=== PATIENT | male | born 1965 | race Caucasian/White ===

== ENCOUNTER 2021-01-18 11:53 | Outpatient (REF) | payer BC, SELFPAY ==
[2021-01-18 13:29] LABS: MANUAL DIFF FLAG NO
[2021-01-18 13:32] LABS: Basophils Absolute Auto 0.1 X10*3/uL (0.0-0.2); Basophils Percent Auto 1.4 % (0-2); Eosinophils Absolute Auto 0.1 X10*3/uL (0.0-0.4); Eosinophils Percent Auto 2.1 % (0-4); Hematocrit 44.2 % (42-52); Hemoglobin 15.1 g/dl (14.0-18.0); Imm Gran Abs Auto 0.01 X10*3/uL (0.00-0.03); Imm Gran Pct Auto 0.2 % (0.0-0.4); Lymphocytes Absolute Auto 1.3 X10*3/uL (1.2-4.9); Lymphocytes Percent Auto 23.3 % (20-40); Mean Corpuscular HGB Conc 34.2 g/dl (31.0-36.0); Mean Corpuscular Volume 90.8 fL (80-98); Mean Platelet Volume 11.2 fL (9.4-12.4); Monocytes Absolute Auto 0.6 X10*3/uL (0.1-1.2); Monocytes Percent Auto 11.1 % (2-11); Neutrophils Absolute Auto 3.5 X10*3/uL (2.0-8.3); Neutrophils Percent Auto 61.9 % (45-73); Platelet Count 244 X10*3/uL (160-400); Red Blood Count 4.87 X10*6/uL (4.60-5.80); White Blood Count 5.6 X10*3/uL (4.8-10.8)
[2021-01-18 13:55] LABS: Alanine Aminotransferase 16 U/L (0-40); Albumin Level 4.5 g/dL (3.5-5.0); Alkaline Phosphatase 52 U/L (39-117); Anion Gap 10 (12-20); Aspartate Amino Transferase 18 U/L (5-37); Bilirubin Total 2.9 mg/dL (0.0-1.0); Blood Urea Nitrogen 16 mg/dL (9-16); Calcium 9.3 mg/dL (8.4-10.2); Carbon Dioxide 27 mmol/L (22-29); Chloride 103 mmol/L (96-108); Estimated Glomerular Filt Rate > 60; Glucose Fasting 89 mg/dL (60-99); Potassium 4.2 mmol/L (3.3-5.1); Sodium 136 mmol/L (135-145); Total Protein 7.1 g/dL (6.5-8.0)
[2021-01-18 13:57] LABS: Glucose Urine UA NEG (NEG); Leukocyte Esterase Urine NEG (NEG); Nitrite Urine NEG (NEG); PH 6.5 (5.0-8.0); Specific Gravity - Urine 1.015 (1.005-1.025); Urine Blood NEG (NEG); Urine Ketones NEG (NEG); Urine Protein NEG (NEG-TRACE)
[2021-01-18 14:01] LABS: Appearance Urine CLEAR; Color Urine YELLOW
[2021-01-18 14:15] LABS: TSH reflex Free T4 0.98 uIU/mL (0.32-4.0)
== END 2021-01-18 11:54 | disposition home or self-care (01) ==
LOC: HO.WFDLDS 11:53
PROVIDERS: Visit Provider Family Medicine
DX: Z00.00 Encounter for general adult medical examination without abnormal findings (principal)
CPT/HCPCS: 36415; 80053; 81003; 84443; 85025

== ENCOUNTER → 2021-02-01 09:13 | Outpatient (BNVA) | payer BC, SELFPAY | PROVIDERS: PCP Family Medicine; Referring Provider Family Medicine; Visit Provider Physician Assistant ==

== ENCOUNTER 2021-02-06 10:39 | Outpatient (REF) | payer BC, SELFPAY ==
[2021-02-06 14:52] LABS: Bilirubin Direct 0.4 mg/dL (0.0-0.5); Gamma Glutamyl Transpeptidase 19 U/L (11-51); Lipase 65 U/L (8-78)
[2021-02-07 04:50] LABS: HBS Num1 1.51 mIU/mL (0-7.99); HBc Num1 0.07 S/CO (0.00-0.79); Hepatitis B Core Antibody Nonreactive (Nonreactive); ~Hepatitis B Surface Antibody NONREACTIVE (Nonreactive); ~Hepatitis C Antibody Nonreactive (Nonreactive)
[2021-02-07 04:56] LABS: Hepatitis B Surface Antigen Negative (Negative)
[2021-02-08 08:21] LABS: Hepatitis A Antibody IgM 0.32 Index (0-0.79); ~Hepatitis A Antibody IgM Nonreactive (Nonreactive)
[2021-02-09 12:06] LABS: Endomysial IgA Antibody Negative (Negative)
[2021-02-09 13:06] LABS: Anti Nuclear Antibody Screen NEGATIVE (NEGATIVE)
[2021-02-09 20:32] LABS: Transglutaminase IgA <1.0 U/mL
== END 2021-02-06 10:40 | disposition home or self-care (01) ==
LOC: HO.WFDLDS 10:39
PROVIDERS: PCP Family Medicine; Visit Provider Physician Assistant
DX: R17 Unspecified jaundice (principal); R74.01 Elevation of levels of liver transaminase levels; R19.7 Diarrhea, unspecified; R79.89 Other specified abnormal findings of blood chemistry
CPT/HCPCS: 36415; 82248; 82977; 83516; 83690; 86038; 86039; 86255; 86256; 86704; 86706; 86709; 86803; 87340

== ENCOUNTER 2021-02-08 10:44 | Outpatient (REF) | payer BC, SELFPAY ==
[2021-02-08 14:35] LABS: Leukocytes Stool Qualitative NEGATIVE (NEGATIVE)
== END 2021-02-08 10:45 | disposition home or self-care (01) ==
LOC: HO.WFDLNP 10:44
PROVIDERS: Absent Provider Physician Assistant; Visit Provider Family Medicine
DX: R19.7 Diarrhea, unspecified (principal)
CPT/HCPCS: 87045; 87046; 89055

== ENCOUNTER 2021-03-06 09:23 | Outpatient (REF) | payer BC, SELFPAY ==
--- NOTE | ~2021-03-06 | US_ITS ---
EXAMINATION: US ABDOMEN COMPLETE CLINICAL INFORMATION: Unspecified jaundice. COMPARISON: None TECHNIQUE: Real-time imaging of the abdominal viscera. FINDINGS: PANCREAS: The visualized pancreas is normal in size and contour and echogenicity. There is no pancreatic ductal distention. The distal body and tail are obscured by bowel gas and not completely imaged. ABDOMINAL AORTA: The proximal, mid, and distal segments are normal in caliber. INFERIOR VENA CAVA: Visualized portions are normal. LIVER: The liver is normal in size and smooth in contour. Hepatic parenchymal echogenicity is homogeneous and within normal. There is no focal hepatic parenchymal lesion and no intrahepatic ductal dilatation. Doppler shows portal flow towards the liver. GALLBLADDER: The gallbladder is possibly partly contracted (although technologist notes patient fasting). The lumen is anechoic. There is no stone or sludge or calculi. Gallbladder wall is borderline thickened measuring 0.35 cm. No subserosal edema or pericholecystic fluid. Negative sonographic Zhao's sign. COMMON BILE DUCT: Normal in caliber measuring 0.34 cm in diameter. No ductal calculus. RIGHT KIDNEY: Right kidney measures 9.6 cm in length. There is normal parenchymal thickness and echogenicity and no hydronephrosis. LEFT KIDNEY: Left kidney measures 10.4 cm in length. There is normal parenchymal thickness and echogenicity and no hydronephrosis. SPLEEN: Normal. The spleen measures 10.7 cm in maximum dimension. FREE FLUID: None. US/US abdomen complete IMPRESSION: 1. Liver normal in size and homogeneous. No intrahepatic ductal dilatation. 2. Question partly contracted gallbladder. No visible calculus or sludge.
== END 2021-03-06 09:24 | disposition home or self-care (01) ==
LOC: HO.US 09:23
PROVIDERS: PCP Family Medicine; Visit Provider Physician Assistant
DX: R17 Unspecified jaundice (principal)
CPT/HCPCS: 76700

== ENCOUNTER 2021-03-14 08:53 | Outpatient (REF) | payer BC, SELFPAY ==
--- NOTE | ~2021-03-14 | FL_ITS ---
EXAMINATION: FL BARIUM SWALLOW CLINICAL INFORMATION: Gastroesophageal reflux disease without esophagitis COMPARISON: None TECHNIQUE: Barium swallow examination is performed using fluoroscopic evaluation in addition to multiple fluoroscopic spot views. The patient is imaged both upright and prone and using both thick and thin sulfate along with effervescent granules. Barium tablet was also administered. Fluoroscopy time: 1.1 minutes DAP: 3 Gycm2 Images: 42 FINDINGS: The swallowing mechanism is normal. No aspiration or penetration is seen. There is significant gastroesophageal reflux. There is mild mucosal irregularity of the distal thoracic esophagus suggestive of mild esophagitis. There is a tiny sliding hiatal hernia. No mass or stricture is seen. Barium tablet passed freely into the stomach. FL/FL barium swallow IMPRESSION: Gastroesophageal reflux. Mild mucosal irregularity of the distal thoracic esophagus suggestive of mild esophagitis.
== END 2021-03-14 08:54 | disposition home or self-care (01) ==
LOC: HO.XRAY 08:53
PROVIDERS: PCP Family Medicine; Visit Provider Physician Assistant
DX: K21.9 Gastro-esophageal reflux disease without esophagitis (principal); R10.9 Unspecified abdominal pain
CPT/HCPCS: 74220

== ENCOUNTER 2021-07-03 08:54 | Day surgery (SDC) | payer BC, SELFPAY ==
--- NOTE | 2021-06-30 12:46 | P.CONAN_ITS ---
Documented by User: Sandy Weathers NP 06/30/21 12:47 HPI - Anesthesia Eval Consult details Narrative: 56yo M for Upper Endoscopy and Colonoscopy [facility] Active Problems Active Problems: All Active Problems (Updated 06/27/21 @ 11:05 by Ofelia Robertson RN) Stomach pain (Acute) GERD (gastroesophageal reflux disease) (Acute) Elevated bilirubin (Acute) Past Medical History Medical History (Updated 06/27/21 @ 11:05 by Ofelia Robertson RN) GERD (gastroesophageal reflux disease) Surgical History Surgical History Hx of colonoscopy Social History Social History Household Members Other:: single no kids Alcohol intake: current Alcohol intake frequency: does not drink Patient Tobacco Use Status: Never used Tobacco Second Hand Smoke Exposure: No Use of substances other than those prescribed or required for medical reasons: No Are you DNR?: No Advance Directives: No Advance Directives Information Provided: Yes Advance Directives on File: No Current occupation: [employer] Allergies Allergy/AdvReac Type Severity Reaction Status Date / Time No Known Allergies Allergy Verified 06/27/21 11:05 Exam Exam Date and Time: June 30, 2021 1246 Pertinent Lab Results Pertinent Lab Results: Laboratory Tests 01/18/21 01/18/21 12:05 12:05 WBC 5.6 Hgb 15.1 Hct 44.2 Plt Count 244 Sodium 136 Potassium 4.2 Chloride 103 Carbon Dioxide 27 BUN 16 Creatinine 0.81 Assessment and Plan Assessment Anesthesia Assessment: Chart Reviewed Documented by User: Evangelina Sanchez MD 07/03/21 10:35 [facility] Past Medical History Medical History (Updated 06/27/21 @ 11:05 by Ofelia Robertson RN) GERD (gastroesophageal reflux disease) Family History Family history of problems with anesthesia: No Surgical History Surgical History Hx of colonoscopy History of Problems with Anesthesia: No Social History Social History Household Members Other:: single no kids Alcohol intake: current Alcohol intake frequency: does not drink Patient Tobacco Use Status: Never used Tobacco Second Hand Smoke Exposure: No Use of substances other than those prescribed or required for medical reasons: No Are you DNR?: No Advance Directives: No Advance Directives Information Provided: Yes Advance Directives on File: No Current occupation: [employer] Allergies Allergy/AdvReac Type Severity Reaction Status Date / Time No Known Allergies Allergy Verified 06/27/21 11:05 Exam Airway Mallampati Class: II TM Dist: >3cm Neck ROM: Full Heart: rrr Lungs: cta Assessment and Plan Assessment Anesthesia Assessment: Anesthesia Plan Discussed and Chart Reviewed Final Anesthetic Review Family History of Problems with Anesthesia: No History of Problems with Anesthesia: No NPO: Yes ASA Class: II Final Preanesthetic Review: No Changes in Pt Med Stat, Meds/Allgs Chart Reviewed, Consent Obtained/Reviewed and Anes Risks/Benef Reviewed Patient Risk: Intermediate Procedure Risk: Intermediate Anesthetic Plan Anesthetic Plan: MAC: Disposition: Standard PACU
[2021-07-03 09:45] VITALS: BP 116/73; PULSE 64; RESP 16; TEMP 36.5; O2SAT 98; BMI 20.9
[2021-07-03] MEDS: Lactated Ringers 1,000 ML 100 ML IVCONT (09:52)
--- NOTE | 2021-07-03 10:21 | MHC.SHP ---
Pre-Procedural Eval Section A Date of Service: 07/03/21 The patient is an INPATIENT: No The History & Physical has been completed within 30 days and I have reviewed it.: No Section B Chief Complaint: Abdominal Pain,GERD Details of Present Illness: Colon cancer screening, GERD, abdominal pain, change in bowel habits Relevant Family History (Specify if Yes): No Relevant Social History: None Present Medications: see Short Stay Collaborative assessment Medical History: Significant History (GERD, abdominal pain) History of Previous Operations: Relevant previous surgery/procedure and date(s) (Hx of colonoscopy) Allergies: Allergies Allergy/AdvReac Type Severity Reaction Status Date / Time No Known Allergies Allergy Verified 06/27/21 11:05 Review of Systems Sugical H&P ROS: Negative: Constitution, Cardiovascular and Respiratory and Yes, Specify: Gastrointestinal (abdominal pain) Exam Surgical H&P Exam: Normal: Heart, Normal: Lungs, Normal: Extremities and Normal: Abdomen Plan Diagnosis/Plan: Unchanged I have reviewed the history and physical and performed a pertinent physical examination on my patient. No changes have occurred unless specified.
--- NOTE | 2021-07-03 10:23 | PM.OP ---
Brief Operative Note Date of Service: 07/03/21 Pre-op diagnosis: Colon cancer screening, abdominal pain, GERD, change in bowel habits Post-op diagnosis: other (Hiatal hernia, GERD, gastritis, gastric polyps, hemorrhoids) Procedure: FLEXIBLE TRANSORAL UPPER GASTROINTESTINAL ENDOSCOPY WITH BIOPSIES AND COLONOSCOPY TILL CECUM WITH BIOPSIES UPPER ENDOSCOPY Consent: Indications for the procedure and potential complications of bleeding, perforation, reaction to medications and missed diagnosis were discussed with the patient and informed consent was obtained. Instrument: Olympus GIF H 190 mid size upper endoscope Monitoring: Vital signs and clinical assessment, continuous EKG monitoring, Pulse oximetry, Carbon Dioxide monitoring and blood pressure monitoring were done throughout the procedure. Procedure: The patient was placed in the left lateral decubitis position and pre-procedure medications were administered and a bite block was placed. The endoscope was inserted into the mouth and advanced under direct vision to the third part of duodenum. A careful inspection was made as the upper endoscope was withdrawn including a retroflexed examination of the proximal stomach; Findings and interventions are described below. Findings: Larynx: Normal Esophagus: GE junction at 38 cms, small hiatal hernia 38 to 40 cms. Focal esophagitis at GE junction with early non-obstructing stricture versus Scatzki's ring - biopsies were obtained. Stomach: A few 4-5 mm benign appearing polyps in the gastric body - one was biopsied. Moderate gastric erythema. Biopsies were obtained. Grade 2 flap valve on retroflexed examination of the cardia. Duodenum: Normal bulb and descending duodenum - biopsied to check ofr celiac sprue Intervention: Biopsies as noted above COLONOSCOPY PROCEDURE NOTE Consent: Indications for the procedure and potential complications of bleeding, perforation, reaction to medications and missed diagnosis were discussed with the patient and informed consent was obtained. Instrument: Olympus PCF H 190 L variable stiffness pediatric colonoscope Monitoring: Vital signs and clinical assessment, intermittent blood pressure monitoring, continuous EKG monitoring, Pulse oximetry and Carbon Dioxide monitoring were done throughout the procedure. Colon withdrawl time was 24 minutes. Procedure: The patient was placed in the left lateral decubitis position and pre-procedure medications were administered. After a digital rectal examination of the ano-rectum, the video colonoscope was inserted into the rectum and advanced through the colon to the cecum. The colonoscope was slowly withdrawn in a retrograde panoramic fashion and the colon mucosa was carefully examined including a retroflexed view of the rectum. Findings and interventions are described below. Procedure Difficulty: Colon was long and tortuous and there was some loop formation. No maneuvers required Findings: Terminal Ileum: Distal 5 cms was examined and appeared normal - random biopsies were obtained. Cecum: Normal Ascending Colon: Normal Transverse Colon: Normal Descending Colon: Normal Sigmoid Colon: Normal Rectum: Normal Ano-rectum: Moderate internal hemorrhoids Colon preparation: Good after copious irrigation and fair in some areas of the colon (cecum and rectum) due undigested vegetable matter Impression and Post Procedure Diagnosis: Endoscopy Findings: ESOPHAGUS: GE junction at 38 cms, small hiatal hernia 38 to 40 cms. Focal esophagitis at GE junction with early non-obstructing stricture versus Scatzki's ring - biopsies were obtained. STOMACH: A few 4-5 mm benign appearing polyps in the gastric body - one was biopsied. Moderate gastric erythema. Biopsies were obtained. DUODENUM: Normal bulb and descending duodenum - biopsied to check ofr celiac sprue Colonoscopy Findings: No polyps were detected. Random biopsies were obtained from the TI and colon Moderate hemorrhoids on retroflexed exam. Plan: Await pathology results Patient has an appointment on 07/17/21 in the GI Clinic with KIERAN Hopper. Repeat Colonoscopy interval based on path results - in 10 years if biopsies are normal (needs two day prep or extra laxatives and an adult colonoscope for future colonoscopies) Above findings were reviewed with the patient and GERD, Hiatal Hernia and Gastric Polyps handouts were given in the discharge area Surgeon: Tyron Fernández MD Anesthesia: MAC (Dr Barreto) Was an Fireproof Door Assembler used for this Procedure?: Yes Fireproof Door Assembler: Aurea Fitzgerald Estimated blood loss (mL): 0 Pathology: other (A. small bowel bxs, R/O celiac B. gastric antrum bxs, R/O H. pylori C. gastric polyp D. G-E junction, R/O esophagitis E. T-I bxs, R/O IBD F. random colon bxs, R/O microscopic ) Condition: stable Disposition: PACU
--- NOTE | 2021-07-03 10:34 | W.PM.OPN ---
Operative Note Operative Note Date of Service: 07/03/21 Narrative: Pre-op diagnosis: Colon cancer screening, abdominal pain, GERD, change in bowel habits Post-op diagnosis:?other (Hiatal hernia, GERD, gastritis, gastric polyps, hemorrhoids) Procedure: FLEXIBLE TRANSORAL UPPER GASTROINTESTINAL ENDOSCOPY WITH BIOPSIES AND COLONOSCOPY TILL CECUM WITH BIOPSIES UPPER ENDOSCOPY Consent:?Indications for the procedure and potential complications of bleeding, perforation, reaction to medications and missed diagnosis were discussed with the patient and informed consent was obtained. Instrument:?Olympus GIF H 190 mid size upper endoscope Monitoring: Vital signs and clinical assessment, continuous EKG monitoring, Pulse oximetry, Carbon Dioxide monitoring and blood pressure monitoring were done throughout the procedure. Procedure:?The patient was placed in the left lateral decubitis position and pre-procedure medications were administered and a bite block was placed. The endoscope was inserted into the mouth and advanced under direct vision to the third part of duodenum. A careful inspection was made as the upper endoscope was withdrawn including a retroflexed examination of the proximal stomach; Findings and interventions are described below. Findings: Larynx:? Normal Esophagus:?GE junction at 38 cms, small hiatal hernia 38 to 40 cms.? Focal esophagitis at GE junction with early non-obstructing stricture versus Scatzki's ring - biopsies were obtained. Stomach:?A few 4-5 mm benign appearing polyps in the gastric body - one was biopsied. Moderate gastric erythema. Biopsies were obtained. Grade 2 flap valve on retroflexed examination of the cardia. Duodenum:?Normal bulb and descending duodenum - biopsied to check ofr celiac sprue ? Intervention:?Biopsies as noted above COLONOSCOPY PROCEDURE NOTE Consent:?Indications for the procedure and potential complications of bleeding, perforation, reaction to medications and missed diagnosis were discussed with the patient and informed consent was obtained. Instrument:?Olympus PCF H 190 L variable stiffness pediatric colonoscope Monitoring:?Vital signs and clinical assessment, intermittent blood pressure monitoring, continuous EKG monitoring, Pulse oximetry and Carbon Dioxide monitoring were done throughout the procedure. Colon withdrawl time was 24 minutes. Procedure:?The patient was placed in the left lateral decubitis position and pre-procedure medications were administered. After a digital rectal examination of the ano-rectum, the video colonoscope was inserted into the rectum and advanced through the colon to the cecum. The colonoscope was slowly withdrawn in a retrograde panoramic fashion and the colon mucosa was carefully examined including a retroflexed view of the rectum. Findings and interventions are described below. Procedure Difficulty:??Colon was long and tortuous and there was some loop formation. No maneuvers required Findings: Terminal Ileum: Distal 5 cms was examined and appeared normal - random biopsies were obtained. Cecum:? Normal Ascending Colon:??Normal Transverse Colon:??Normal Descending Colon:? Normal Sigmoid Colon: Normal Rectum:??Normal Ano-rectum:??Moderate internal hemorrhoids Colon preparation:? Good after copious irrigation and fair in some areas of the colon (cecum and rectum) due undigested vegetable matter Impression and Post Procedure Diagnosis: Endoscopy Findings: ESOPHAGUS: GE junction at 38 cms, small hiatal hernia 38 to 40 cms.? Focal esophagitis at GE junction with early non-obstructing stricture versus Scatzki's ring - biopsies were obtained. STOMACH: A few 4-5 mm benign appearing polyps in the gastric body - one was biopsied. Moderate gastric erythema. Biopsies were obtained. DUODENUM: Normal bulb and descending duodenum - biopsied to check ofr celiac sprue?? Colonoscopy Findings: No polyps were detected. Random biopsies were obtained from the TI and colon Moderate hemorrhoids on retroflexed exam. Plan: Await pathology results Patient has an appointment on 07/17/21 in the GI Clinic with KIERAN Hopper. Repeat Colonoscopy interval based on path results - in 10 years if biopsies are normal (needs two day prep or extra laxatives and an adult colonoscope for future colonoscopies) Above findings were reviewed with the patient and GERD, Hiatal Hernia and Gastric Polyps handouts were given in the discharge area Surgeon: Tyron Fernández MD Anesthesia:?MAC (Dr Barreto) Was an Shovel Logger used for this Procedure?:?Yes Shovel Logger:?Aurea Fitzgerald Estimated blood loss (mL):?0 Pathology:?other (A. small bowel bxs, R/O celiac? B. gastric antrum bxs, R/O H. pylori? C. gastric polyp? D. G-E junction, R/O esophagitis? E. T-I bxs, R/O IBD? F. random colon bxs, R/O microscopic ) Condition:?stable Disposition:?PACU
[2021-07-03 11:28] VITALS: BP 113/70; PULSE 92; RESP 16; TEMP 36.3; O2SAT 97
[2021-07-03 11:43] VITALS: BP 103/70; PULSE 90; RESP 16; O2SAT 100
[2021-07-03 11:58] VITALS: BP 117/75; PULSE 81; RESP 16; TEMP 36.3; O2SAT 100
== END 2021-07-03 12:39 | disposition home or self-care (01) ==
PROVIDERS: PCP Family Medicine; Visit Provider Internal Medicine Gastroenterology
PROC: (CPT 45380; principal; 2021-07-03 10:20)
DX: Z12.11 Encounter for screening for malignant neoplasm of colon (principal); K64.8 Other hemorrhoids; R19.7 Diarrhea, unspecified; K21.9 Gastro-esophageal reflux disease without esophagitis; K29.50 Unspecified chronic gastritis without bleeding; K31.7 Polyp of stomach and duodenum; K44.9 Diaphragmatic hernia without obstruction or gangrene; Z79.899 Other long term (current) drug therapy
CPT/HCPCS: 45380; 43239; 88305; 88342

== ENCOUNTER → 2021-07-17 14:56 | Outpatient (BNVA) | payer BC, SELFPAY | PROVIDERS: PCP Family Medicine; Referring Provider Family Medicine; Visit Provider Physician Assistant ==

== ENCOUNTER 2021-08-29 10:51 | Outpatient (REF) | payer BC, SELFPAY ==
[2021-08-29 13:15] LABS: MANUAL DIFF FLAG NO
[2021-08-29 13:21] LABS: Basophils Absolute Auto 0.1 X10*3/uL (0.0-0.2); Basophils Percent Auto 1.6 % (0-2); Eosinophils Absolute Auto 0.1 X10*3/uL (0.0-0.4); Eosinophils Percent Auto 1.3 % (0-4); Hematocrit 42.6 % (42.0-52.0); Hemoglobin 14.3 g/dl (14.0-18.0); Imm Gran Abs Auto 0.01 X10*3/uL (0.00-0.03); Imm Gran Pct Auto 0.3 % (0.0-0.4); Lymphocytes Absolute Auto 1.1 X10*3/uL (1.2-4.9); Lymphocytes Percent Auto 30.6 % (20-40); Mean Corpuscular HGB Conc 33.6 g/dl (31.0-36.0); Mean Corpuscular Volume 92.2 fL (80.0-98.0); Mean Platelet Volume 11.8 fL (9.4-12.4); Monocytes Absolute Auto 0.5 X10*3/uL (0.1-1.2); Monocytes Percent Auto 13.7 % (2-11); Neutrophils Percent Auto 52.5 % (45-73); Platelet Count 194 X10*3/uL (160-400); Red Blood Count 4.62 X10*6/uL (4.60-5.80); Red Cell Distribution Width 12.5 % (11.0-16.0); White Blood Count 3.7 X10*3/uL (4.8-10.8)
[2021-08-29 13:48] LABS: Alanine Aminotransferase 19 U/L (0-40); Albumin Level 4.4 g/dL (3.5-5.0); Alkaline Phosphatase 57 U/L (39-117); Anion Gap 13 (12-20); Aspartate Amino Transferase 22 U/L (5-37); Bilirubin Direct 0.8 mg/dL (0.0-0.5); Bilirubin Total 2.9 mg/dL (0.0-1.0); Blood Urea Nitrogen 19 mg/dL (9-16); C Reactive Protein 0.02 mg/dL (< or = 0.50); Calcium 9.6 mg/dL (8.4-10.2); Carbon Dioxide 27 mmol/L (22-29); Chloride 103 mmol/L (96-108); Estimated Glomerular Filt Rate > 60; Glucose Random 59 mg/dL (60-115); Sodium 139 mmol/L (135-145); Total Protein 6.9 g/dL (6.5-8.0)
[2021-08-29 14:13] LABS: Erythrocyte Sedimentation Rate 4 MM/HR (0-15)
== END 2021-08-29 10:52 | disposition home or self-care (01) ==
LOC: HO.WFDLDS 10:51
PROVIDERS: Visit Provider Physician Assistant
DX: R19.7 Diarrhea, unspecified (principal); K21.9 Gastro-esophageal reflux disease without esophagitis; R17 Unspecified jaundice; K20.90 Esophagitis, unspecified without bleeding; K50.00 Crohn's disease of small intestine without complications
CPT/HCPCS: 36415; 80053; 81479; 82248; 82397; 83520; 85025; 85652; 86140; 88346; 88350

== ENCOUNTER 2021-09-04 11:17 | Outpatient (REF) | payer BC, SELFPAY ==
[2021-09-09 21:47] LABS: Calprotectin, Fecal 49 mcg/g
== END 2021-09-04 11:18 | disposition home or self-care (01) ==
LOC: HO.WFDLNP 11:17
PROVIDERS: Visit Provider Physician Assistant
DX: K50.00 Crohn's disease of small intestine without complications (principal); R19.7 Diarrhea, unspecified
CPT/HCPCS: 83993

== ENCOUNTER → 2021-10-03 12:29 | Outpatient (BNVA) | payer BC, SELFPAY | PROVIDERS: PCP Family Medicine; Visit Provider Physician Assistant | DX: K21.9 Gastro-esophageal reflux disease without esophagitis (principal) ==

== ENCOUNTER 2021-11-21 10:04 | Outpatient (REF) | payer BC, SELFPAY ==
[2021-11-21 11:32] LABS: MANUAL DIFF FLAG NO
[2021-11-21 11:49] LABS: Basophils Absolute Auto 0.1 X10*3/uL (0.0-0.2); Basophils Percent Auto 1.3 % (0-2); Eosinophils Absolute Auto 0.1 X10*3/uL (0.0-0.4); Eosinophils Percent Auto 2.3 % (0-4); Hematocrit 44.8 % (42.0-52.0); Imm Gran Abs Auto 0.02 X10*3/uL (0.00-0.03); Imm Gran Pct Auto 0.3 % (0.0-0.4); Lymphocytes Absolute Auto 1.6 X10*3/uL (1.2-4.9); Lymphocytes Percent Auto 26.8 % (20-40); Mean Corpuscular HGB Conc 33.5 g/dl (31.0-36.0); Mean Corpuscular Hemoglobin 30.7 pg (27.0-33.0); Mean Corpuscular Volume 91.6 fL (80.0-98.0); Mean Platelet Volume 11.2 fL (9.4-12.4); Monocytes Absolute Auto 0.6 X10*3/uL (0.1-1.2); Monocytes Percent Auto 10.6 % (2-11); Neutrophils Absolute Auto 3.6 x10*3/uL (2.0-8.3); Neutrophils Percent Auto 58.7 % (45-73); Platelet Count 208 X10*3/uL (160-400); Red Blood Count 4.89 X10*6/uL (4.60-5.80); Red Cell Distribution Width 12.4 % (11.0-16.0); White Blood Count 6.1 X10*3/uL (4.8-10.8)
[2021-11-21 13:03] LABS: Alanine Aminotransferase 29 U/L (0-40); Albumin Level 4.4 g/dL (3.5-5.0); Alkaline Phosphatase 60 U/L (39-117); Anion Gap 12 (12-20); Aspartate Amino Transferase 22 U/L (5-37); Bilirubin Total 2.1 mg/dL (0.0-1.0); Blood Urea Nitrogen 12 mg/dL (9-16); Carbon Dioxide 29 mmol/L (22-29); Chloride 103 mmol/L (96-108); Estimated Glomerular Filt Rate > 60; Glucose Random 94 mg/dL (60-115); Sodium 140 mmol/L (135-145); Total Protein 6.8 g/dL (6.5-8.0)
== END 2021-11-21 10:05 | disposition home or self-care (01) ==
LOC: HO.WFDLDS 10:04
PROVIDERS: Visit Provider Physician Assistant
DX: R10.9 Unspecified abdominal pain (principal); R17 Unspecified jaundice
CPT/HCPCS: 36415; 80053; 85025

== ENCOUNTER 2021-12-20 10:33 | Outpatient (REF) | payer BC, SELFPAY ==
--- NOTE | ~2021-12-20 | MR_ITS ---
EXAMINATION: MR ANGIOGRAPHY BRAIN WITHOUT CONTRAST CLINICAL INFORMATION: Cerebral aneurysm. Family history of brain aneurysm. COMPARISON: None available. TECHNIQUE: 3D [id number] MR angiography was performed through the brain without the use of intravenous gadolinium and axial source images were reviewed along with rotating MIPs. FINDINGS: Normal flow-related signal within the anterior circulation without evidence of focal stenosis or occlusion of the intradural internal carotid, middle cerebral, or anterior cerebral arteries. Normal flow-related signal within the posterior circulation without evidence of focal stenosis or occlusion of the intradural vertebral, basilar, superior cerebellar, or posterior cerebral arteries. No demonstrated intradural aneurysms. No additional significant abnormalities on limited evaluation of the intracranial structures. MR/MR angio head wo con IMPRESSION: Normal MRA of the head.
== END 2021-12-20 10:34 | disposition home or self-care (01) ==
LOC: HO.MRI 10:33
PROVIDERS: Visit Provider Family Medicine
DX: I67.1 Cerebral aneurysm, nonruptured (principal)
CPT/HCPCS: 70544

== ENCOUNTER 2022-01-30 09:26 | Outpatient (REF) | payer BC, SELFPAY ==
[2022-01-30 10:56] LABS: Cholesterol 215 mg/dL; HDL Cholesterol 62 mg/dL; LDL Cholesterol Calculated 133 mg/dl; Triglycerides 102 mg/dL
[2022-01-30 11:21] LABS: TSH reflex Free T4 1.66 uIU/mL (0.32-4.0)
[2022-02-06 07:32] LABS: Testosterone, Total 734 ng/dL (250-1100)
== END 2022-01-30 09:27 | disposition home or self-care (01) ==
LOC: HO.WFDLDS 09:26
PROVIDERS: Visit Provider Family Medicine
DX: Z00.00 Encounter for general adult medical examination without abnormal findings (principal); Z12.5 Encounter for screening for malignant neoplasm of prostate; R68.89 Other general symptoms and signs
CPT/HCPCS: 36415; 80061; 84153; 84402; 84403; 84443

== ENCOUNTER 2023-02-11 08:51 | Outpatient (AMB) | payer BC, SELFPAY ==
--- NOTE | 2023-02-11 08:59 | A.OFFPC_ITS ---
Vital Signs 02/11/23 09:01 Height 5 ft 6 in Weight 119 lb 4 oz BMI 19.2 BP 98/64 Blood Pressure Location Rt brachial Position Sitting Pulse 60 Pulse Source Pulse Oximeter Pulse Oximetry (%) 100 Oxygen Delivery Method Room Air Intake Visit Reasons: CPE with f/u labs and health maintena Intake Note: Patient is here for his physical today. Allergies No Known Allergies Allergy (Verified 02/11/23 09:03) Tobacco use date assessed: 02/11/23 Dental Screening Dental Screen Date: 02/11/23 Did you have a dental visit in the last 12 months?: Yes Did you have a dental problem in the last 6 months where you did not have access to dental care?: No Was dental information given to patient?: Patient has dentist HPI CPE with f/u labs and health maintena HPI Details 57 y/o male presents for a CPE with f/u labs and health maintenance. No recent labs to review. Pt reports wrist pain. 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 He denies any numbness/tingling. [facility] Medical History GERD (gastroesophageal reflux disease) Surgical History H/O bone graft Hx of colonoscopy Social History Household Members Other:: single no kids Housing: House Alcohol intake: current Alcohol intake frequency: does not drink Patient Tobacco Use Status: Never used Tobacco e-Cigarette/Vaping Use: Never Used Second Hand Smoke Exposure: No service: No Current occupational status: employed Current occupation: [employer] Current occupational exposures/hazards: No Cognitive needs: No Hearing needs: No Vision needs: No Questionnaire PHQ-9 Over the last 2 weeks, how often have you been bothered by any of the following problems? 1. Little interest or pleasure in doing things: not at all 2. Feeling down, depressed, or hopeless: not at all 3. Trouble falling or staying asleep, or sleeping too much: not at all 4. Feeling tired or having little energy: not at all 5. Poor appetite or overeating: not at all 6. Feeling bad about yourself - or that you are a failure or have let yourself or your family down: not at all 7. Trouble concentrating on things, such as reading the newspaper or watching television: not at all 8. Moving or speaking so slowly that other people could have noticed. Or the opposite - being so fidgety or restless that you have been moving around a lot more than usual: not at all 9. Thoughts that you would be better off or of hurting yourself in some way: not at all Total score: 0 Source: Developed by Drs. Aldo Kelsey, Gisela Burnham, Jesus Joy and colleagues, with an educational miesha from [employer]. Thrive Questionnaire I am a: Patient What is your living situation today?: I have a steady place to live Within the past 12 months, did the food you bought not last and you didn't have the money to get more?: Never true Within the past 12 months, did you worry whether your food would run out before you got money to buy more?: Never true Do you have trouble paying for medicines?: No Do you have trouble getting transportation to medical appointments?: No Do you have trouble paying your heating and electricity bill?: No Do you have trouble taking care of your child, family member or friend?: No Do you have trouble with day-to-day activities such as bathing, preparing meals, shopping, managing finances, etc.?: No Are you currently unemployed and looking for a job?: No Are you interested in more education?: Yes AUDIT C Alcohol Use Questionnaire (AUDIT-C) 1. How often do you have a drink containing alcohol?: Never 3. How often do you have six or more drinks on one occasion?: Never Total Score: 0 RON-7 AMB Questionnaire RON-7 Date RON - 7 assessed: 02/11/23 Feeling nervous, anxious, or on edge: 0 = Not at all Not being able to stop or control worryin = Not at all Worrying too much about different things: 0 = Not at all Trouble relaxin = Not at all Being so restless that it is hard to sit still: 0 = Not at all Becoming easily annoyed or irritable: 0 = Not at all Feeling afraid as if something awful might happen: 0 = Not at all Total RON-7 score (0-4 normal; 5-9 mild; 10-14 moderate; 15-21 severe): 0 Source: Developed by Drs. Aldo Kelsey, Gisela Burnham, Jesus Joy and colleagues, with an educational miesha from [employer]. Review of Systems Const Denies chills, Denies fatigue, Denies fever(s), Denies headache(s) and Denies weakness Eyes Denies change in vision ENT Denies dizziness, Denies headache(s), Denies hearing loss, Denies nasal congestion, Denies sinus pain, Denies sinus pressure and Denies sore throat Card Denies chest pain, Denies lightheadedness, Denies dyspnea and Denies other (palpitations) Resp Denies cough, Denies dyspnea and Denies wheezing GI Denies abdominal pain, Denies melena, Denies hematochezia, Denies change in bowel habits, Denies dyspepsia and Denies nausea Denies hematuria and Denies dysuria Musc Denies abnormal gait, Denies myalgias, Denies arthralgias, Denies numbness and Denies tingling Skin/Breast Denies rash, Denies unusual bruising and Denies wounds Neuro Denies abnormal gait, Denies dizziness, Denies headache(s), Denies memory loss, Denies numbness, Denies Sensory deficit (Neuro), Denies tingling and Denies we akness Psych Denies anxiety, Denies depression and Denies memory loss Endo Denies cold intolerance, Denies fatigue, Denies heat intolerance, Denies po lydipsia and Denies polyuria German/Lymph Denies easy bleeding and Denies easy bruising Aller/Immun Denies wheezing Physical exam (Primary Care) Vital Signs: Last Vital Signs Pulse 60 02/11/23 09:01 BP 98/64 02/11/23 09:01 Pulse Ox 100 02/11/23 09:01 Oxygen Delivery Method Room Air 02/11/23 09:01 BMI result Body Mass Index 19.2 Tobacco/Smoking Status: Tobacco use Status Tobacco use date assessed 02/11/23 02/11/23 09:04 Patient Tobacco Use Status Never used Tobacco 02/11/23 08:59 e-Cigarette/Vaping Use Never Used 02/11/23 08:59 PHQ-9: PHQ-9 Score PHQ-9: Total score 0 02/11/23 09:11 Const General: no acute distress, well developed, alert and awake Nutritional Appearance: well nourished Orientation/consciousness: patient oriented x3 [facility] Head: Yes normocephalic and Yes atraumatic Ears: hearing grossly normal bilaterally and TM's normal bilaterally General nose exam: Normal external nose present and Normal nares present Mouth: Normal oral and palatal mucosa present and moist mucous membranes Teeth and gingiva: dentition normal Throat: Yes posterior oropharynx normal Eyes General: appearance normal, both eyes and all related structures Pupils: Equal, round and reactive pupils present and Pupil accommodation reflex normal EOM: EOMs intact bilaterally Neck Neck: Yes normal visual inspection, Yes no lymphadenopathy and Yes trachea midline Thyroid: Thyroid normal Carotids: no bruits Lymphatic: no lymphadenopathy noted Chest Chest palpation & inspection: normal inspection of the chest Resp Effort & Inspection: normal respiratory effort Auscultation: clear to auscultation bilaterally Cardio Rate: regular rate Rhythm: regular rhythm Heart sounds: S1 normal heart sound present, S2 normal heart sound present, no gallops, no murmurs and no rubs Bruits: no abdominal aortic bruits and no carotid bruits GI Palpation (GI): No Abdominal aortic bruit present, Soft to palpation, nontender, No hepatosplenomegaly present and No Rebound tenderness present Auscultation: normal bowel sounds General: Yes no CVA tenderness Back/Spine/Pelvis Back: no CVA tenderness Cervical Spine: cervical ROM normal and No Cervical spine tenderness Thoracic/Lumbar Spine: thoraco-lumbar ROM normal, No pain with thoraco-lumbar ROM, No thoracic spinal tenderness and No lumbar spinal tenderness Skin Lesions: no lesions Rashes: no rashes Trauma: no lacerations or abrasions Wounds: no wounds Nails: normal Neuro General: patient oriented x3 Cranial nerves: Yes Equal, round and reactive pupils present Cognition (Neuro): normal cognition Gait exam (Neuro): Normal gait present Motor exam (neuro): 5/5 motor strength present throughout Sensory Exam: No Sensory deficit (Neuro) Deep tendon reflexes (DTR's): Right patellar reflex intensity grade: 2+ and Left patellar reflex intensity grade: 2+ Extrem General: Yes normal to inspection and No edema Psych Appearance: grossly normal Affect: normal affect Attitude: cooperative Thought process: Normal thought process present Assessment and Plan Assessment & Plan (1) Adult general medical examination: Code(s): Z00.00 - Encounter for general adult medical examination without abnormal findings Plan: 57-year-old male presents for complete physical exam Encouraged healthy diet with active lifestyle and plenty of exercise (2) Wrist pain: Code(s): M25.539 - Pain in unspecified wrist Plan: Bilateral wrist pain with inflammation, left worse than right, after overuse cutting wood with a chain saw Likely some reactive arthritis and tendinitis. Check x-ray and labs Can use ibuprofen t.i.d. until symptoms inge Ice and elevation Once symptoms have abated, he can use wrist braces for more support or if he is unable to perform his tasks with these, he can use Saul wraps for support. Would also use ice after tasks. (3) Screening for colon cancer: Code(s): Z12.11 - Encounter for screening for malignant neoplasm of colon Plan: Had colonoscopy at [facility] last year. Follow-up recommended at 10 years (4) Screening for prostate cancer: Code(s): Z12.5 - Encounter for screening for malignant neoplasm of prostate Plan: Check PSA (5) Immunization counseling: Code(s): Z71.85 - Encounter for immunization safety counseling Plan: Ordered Orders: Orders Comprehensive [place]. Panel Fast Today Z00.00 - Encounter for general adult medical examination without abnormal findings Microalbumin, Random (w Creat) Today I10 - Essential (primary) hypertension TSH reflex Free T4 Today Z00.00 - Encounter for general adult medical examination without abnormal findings UA and rflx microscopic Today Z00.00 - Encounter for general adult medical examination without abnormal findings Uric Acid Today M25.539 - Pain in unspecified wrist Complete Blood Count Auto Diff Today M25.539 - Pain in unspecified wrist, Z00.00 - Encounter for general adult medical examination without abnormal findings XR wrist LT 2V Today M25.539 - Pain in unspecified wrist TDaP Immunization Today Z23 - Encounter for immunization Lipid Panel Today Z00.00 - Encounter for general adult medical examination without abnormal findings Prostate Specific Antigen Scr Today Z12.5 - Encounter for screening for malignant neoplasm of prostate XR wrist RT 2V Today M25.539 - Pain in unspecified wrist Medications: New Boostrix Tdap (diphth,pertus(acell),tetanus) 0.5 mL IM ONCE 0.5 mL 0RF NS Z23 - Encounter for immunization ibuprofen 800 mg PO Q8H 14 days PRN 42 tabs 0RF pain Coding Level of Care Code Est Pt Level 3 (15118) Est Pt Prev Care 40-64y(76318) Diagnoses Adult general medical examination Z00.00 Wrist pain M25.539 Screening for colon cancer Z12.11 Screening for prostate cancer Z12.5 Immunization counseling Z71.85
[2023-02-11 09:01] VITALS: BP 98/64; PULSE 60; O2SAT 100; BMI 19.2
== END 2023-02-11 10:14 | disposition home or self-care (01) ==
PROVIDERS: PCP Family Medicine; Visit Provider Family Medicine
DX: Z00.00 Encounter for general adult medical examination without abnormal findings (principal); M25.539 Pain in unspecified wrist; Z71.85 Encounter for immunization safety counseling; Z23 Encounter for immunization
CPT/HCPCS: 90471; 90715; 99396

== ENCOUNTER 2023-02-11 10:04 | Outpatient (REF) | payer BC, SELFPAY ==
[2023-02-11 11:51] LABS: Appearance Urine Clear; Color Urine Yellow; Glucose Urine UA Negative (Negative); Leukocyte Esterase Urine Negative (Negative); Nitrite Urine Negative (Negative); PH 7.5 (5.0-9.0); Urine Blood Negative (Negative); Urine Ketones Negative (Negative); Urine Protein Negative (Neg-Trace)
[2023-02-11 12:11] LABS: Creatinine Urine 79.27 mg/dL; Microalbumin Urine < 5.0 mg/L
[2023-02-11 12:49] LABS: Alanine Aminotransferase 20 U/L (0-40); Albumin Level 4.4 g/dL (3.5-5.0); Alkaline Phosphatase 60 U/L (39-117); Anion Gap 15 (12-20); Aspartate Amino Transferase 25 U/L (5-37); Bilirubin Total 2.9 mg/dL (0.0-1.0); Blood Urea Nitrogen 6 mg/dL (9-16); Calcium 9.6 mg/dL (8.4-10.2); Carbon Dioxide 22 mmol/L (22-29); Chloride 101 mmol/L (96-108); Cholesterol 194 mg/dL (<200); Estimated Glomerular Filt Rate > 60; Glucose Fasting 98 mg/dL (60-99); HDL Cholesterol 64 mg/dL (>40); LDL Cholesterol Calculated 111 mg/dL (<100); Potassium 4.2 mmol/L (3.3-5.1); Sodium 134 mmol/L (135-145); Total Protein 7.4 g/dL (6.5-8.0); Triglycerides 96 mg/dL (<150); Uric Acid 4.1 mg/dL (3.4-7.0)
[2023-02-11 13:18] LABS: Prostate Specific Antigen Scr 0.82 ng/mL (<0.05-4.0)
== END 2023-02-11 10:05 | disposition home or self-care (01) ==
LOC: HO.WFDLDS 10:04
PROVIDERS: Visit Provider Family Medicine
DX: Z00.00 Encounter for general adult medical examination without abnormal findings (principal); Z12.5 Encounter for screening for malignant neoplasm of prostate; I10 Essential (primary) hypertension; M25.539 Pain in unspecified wrist
CPT/HCPCS: 36415; 80053; 80061; 81003; 82043; 82570; 84153; 84443; 84550

== ENCOUNTER 2023-02-23 10:19 | Outpatient (REF) | payer BC, SELFPAY ==
--- NOTE | ~2023-02-23 | XR_ITS ---
EXAMINATION: XR WRIST, RIGHT CLINICAL INFORMATION: Pain. COMPARISON: None available. TECHNIQUE: PA, lateral, and oblique views of the right wrist. FINDINGS: The bones and soft tissues are normal. No fracture. Alignment is anatomic with normal joint spaces. There is a mild ulnar positive variance. No erosions or abnormal soft tissue calcifications. XR/XR wrist LT 2V IMPRESSION: Normal right wrist. EXAMINATION: XR WRIST, LEFT CLINICAL INFORMATION: Pain. COMPARISON: None available. TECHNIQUE: PA, lateral, and oblique views of the left wrist. FINDINGS: The bones and soft tissues are normal. No fracture. Alignment is anatomic with normal joint spaces. There is a mild ulnar positive variance. No erosions or abnormal soft tissue calcifications. IMPRESSION: Normal left wrist.
--- NOTE | ~2023-02-23 | XR_ITS ---
EXAMINATION: XR WRIST, RIGHT CLINICAL INFORMATION: Pain. COMPARISON: None available. TECHNIQUE: PA, lateral, and oblique views of the right wrist. FINDINGS: The bones and soft tissues are normal. No fracture. Alignment is anatomic with normal joint spaces. There is a mild ulnar positive variance. No erosions or abnormal soft tissue calcifications. XR/XR wrist RT 2V IMPRESSION: Normal right wrist. EXAMINATION: XR WRIST, LEFT CLINICAL INFORMATION: Pain. COMPARISON: None available. TECHNIQUE: PA, lateral, and oblique views of the left wrist. FINDINGS: The bones and soft tissues are normal. No fracture. Alignment is anatomic with normal joint spaces. There is a mild ulnar positive variance. No erosions or abnormal soft tissue calcifications. IMPRESSION: Normal left wrist.
== END 2023-02-23 10:20 | disposition home or self-care (01) ==
LOC: HO.XRAY 10:19
PROVIDERS: PCP Family Medicine; Visit Provider Family Medicine
DX: M25.532 Pain in left wrist (principal); M25.531 Pain in right wrist
CPT/HCPCS: 73100

== ENCOUNTER 2023-03-04 09:52 | Outpatient (AMB) | payer BC, SELFPAY ==
--- NOTE | 2023-03-04 09:46 | A.OFFPC_ITS ---
Intake Visit Reasons: f/u CPE-labs Intake Note: Today's visit is for follow up/lab review. Allergies No Known Allergies Allergy (Verified 03/04/23 09:47) Tobacco use date assessed: 03/04/23 HPI f/u CPE-labs HPI Details 58 y/o male presents to review CPE-labs via telemedicine. Labs were drawn 02/11/23. Reviewed labs with pt. Mildly low sodium at 134. Triglycerides 96. TC 194. LDL 111. HDL 64. HPI Comments History of Present Illness Details Documentation assistance for Darrick Hyman MD, was provided by Ezio Acharya,? Gang Mower Operator on 03/04/2023 10:21 AM EST. I, Dr. Hyman, have read, observed, and verified documentation. PFSH Medical History GERD (gastroesophageal reflux disease) Surgical History H/O bone graft Hx of colonoscopy Social History Household Members Other:: single no kids Housing: House Alcohol intake: current Alcohol intake frequency: does not drink Patient Tobacco Use Status: Never used Tobacco e-Cigarette/Vaping Use: Never Used Second Hand Smoke Exposure: No service: No Current occupational status: employed Current occupation: [employer] Current occupational exposures/hazards: No Cognitive needs: No Hearing needs: No Vision needs: No Questionnaire RON-7 AMB Questionnaire RON-7 Date RON - 7 assessed: 02/11/23 Source: Developed by Drs. Aldo Kelsey, Gisela Burnham, Jesus Joy and colleagues, with an educational miesha from [employer]. Review of Systems Const Denies chills, Denies fatigue, Denies fever(s), Denies headache(s) and Denies weakness ENT Denies dizziness and Denies headache(s) Card Denies dyspnea Resp Denies cough, Denies dyspnea, Denies wheezing and Denies other (shortness of breath) Musc Denies numbness and Denies tingling Neuro Denies dizziness, Denies headache(s), Denies numbness, Denies tingling and Denies weakness Psych Denies anxiety and Denies depression Endo Denies fatigue Aller/Immun Denies wheezing Physical exam (Primary Care) Tobacco/Smoking Status: Tobacco use Status Tobacco use date assessed 03/04/23 03/04/23 09:48 Patient Tobacco Use Status Never used Tobacco 03/04/23 09:48 e-Cigarette/Vaping Use Never Used 03/04/23 09:48 Telehealth Telehealth Location of provider rendering services: practice address Location of patient: address on file Patient Identification confirmed using: Name, : Yes Telehealth method: voice only Patient verbally consented to treatment: Yes Patient verbally consented to billing insurance company: Yes Patient informed of any privacy concerns related to visit: Yes Minutes spent on Phone/Video with Pt.: 7 Assessment and Plan Assessment & Plan (1) Wrist pain: Code(s): M25.539 - Pain in unspecified wrist Plan: X-rays?did?not?show?any?abnormalities.??Likely?overuse?tendinitis Patient?notes?that?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 (3) Immunization counseling: Code(s): Z71.85 - Encounter for immunization safety counseling Plan: Advised?shingles?shot?as?patient?was?enquiring?about?it. Orders: Orders Complete Blood Count Auto Diff Today Z00.00 - Encounter for general adult medical examination without abnormal findings UA and rflx microscopic Today Z00.00 - Encounter for general adult medical examination without abnormal findings Comprehensive [place]. Panel Fast Today Z00.00 - Encounter for general adult medical examination without abnormal findings Microalbumin, Random (w Creat) Today I10 - Essential (primary) hypertension Prostate Specific Antigen Scr Today Z12.5 - Encounter for screening for malignant neoplasm of prostate Lipid Panel Today Z00.00 - Encounter for general adult medical examination without abnormal findings TSH reflex Free T4 Today Z00.00 - Encounter for general adult medical examination without abnormal findings Coding Level of Care Code Tele Est Pt Level 2 (18317) Diagnoses Wrist pain M25.539 Hyponatremia E87.1 Immunization counseling Z71.85
== END 2023-03-04 10:37 | disposition home or self-care (01) ==
LOC: HO.HMGFM 09:52
PROVIDERS: PCP Family Medicine; Visit Provider Family Medicine
DX: M25.531 Pain in right wrist (principal); E87.1 Hypo-osmolality and hyponatremia; Z71.85 Encounter for immunization safety counseling; M25.532 Pain in left wrist
CPT/HCPCS: 99441

== ENCOUNTER → 2023-08-23 11:28 | Outpatient (AMB) | payer BC, SELFPAY ==
--- NOTE | 2023-08-23 11:57 | AM.OFFWIN_ITS ---
Intake Vital Signs 3 08/23/23 12:01 Height 5 ft 6 in Weight 123 lb 8 oz BMI 19.9 BP 112/68 Blood Pressure Location Lt brachial Position Sitting Respiration 14 Pulse 54 Pulse Source Pulse Oximeter Temp 97.8 F Temp Source Oral Pulse Oximetry (%) 100 Oxygen Delivery Method Room Air Intake Visit Reasons: R Knee pain Intake Note: Right knee pain Patient Tobacco Use Status: Never used Tobacco Allergies acetaminophen [From Percocet] Allergy (Verified 08/23/23 12:20) Nausea oxycodone [From Percocet] Allergy (Verified 08/23/23 12:20) Nausea percot Allergy (Mild, Uncoded 08/23/23 12:12) Nausea Medication List - Last Reconciled 08/23/23 by DARCI Rdz- ibuprofen 800 mg PO Q8H PRN 14 days Do you need a note to return to daycare/school/sports/work: Yes HPI HPI Comments 2 History of Present Illness0 Details Here today with complaints of right knee pain. Reports on Saturday while doing yard work he stepped funny on the right knee and immediately felt something give underneath the kneecap. He immediately had pain. Swelling occurred later in the day. He treated himself with ibuprofen. Today he reports pain on the medial aspect of his knee and under his kneecap. Worse with bending, climbing stairs. He was using ibuprofen 400 mg twice per day but then stopped using an immediately had increase in swelling and worsening of his pain. [facility] Medical History GERD (gastroesophageal reflux disease) Surgical History H/O bone graft Hx of colonoscopy Social History Household Members Other:: single no kids Housing: House Alcohol intake: current Alcohol intake frequency: does not drink Patient Tobacco Use Status: Never used Tobacco e-Cigarette/Vaping Use: Never Used Second Hand Smoke Exposure: No service: No Current occupational status: employed Current occupation: [employer] Current occupational exposures/hazards: No Cognitive needs: No Hearing needs: No Vision needs: No Review of Systems Const All systems reviewed & are unremarkable except as noted in HPI and below Physical Exam Vital Signs: Last Vital Signs Temp 97.8 F 08/23/23 12:01 Pulse 54 08/23/23 12:01 Resp 14 08/23/23 12:01 BP 112/68 08/23/23 12:01 Pulse Ox 100 08/23/23 12:01 Oxygen Delivery Method Room Air 08/23/23 12:01 BMI result Body Mass Index 19.9 Extrem Other: Right lower extremity is neurovascularly intact. Normal active and passive range of motion. However reports a tightness and pulling with flexion. Positive crepitus and fluid noted with range of motion underneath the meniscus. No erythema, edema noted on exam Knee images: 2 1. Pain with palpation 2. Pain with palpation Assessment & Plan Assessment & Plan (1) Effusion, right knee: Comment: Refer to [facility]. X-ray ordered today. Continue to take ibuprofen 400 mg 2 times per day with food. Out of work note given return to work on the . Code(s): M25.461 - Effusion, right knee Plan This note is constructed using voice recognition software. While every effort has been made to ensure accuracy in centerless grinder tender, still errors may have been included Sometimes, these errors may affect the content or meaning of the given sentence . Total time spent caring for the patient today was 30 minutes. This includes time spent before the visit reviewing the chart, time spent during the visit, and time spent after the visit on documentation Orders: Orders 2 XR knee RT 4V Today M25.461 - Effusion, right knee Referrals 2 Orthopedics Referral M25.461 - Effusion, right knee Coding Level of Care Code Est Pt Level 4 (32462) Diagnoses Effusion, right knee M25.461
[2023-08-23 12:01] VITALS: BP 112/68; PULSE 54; RESP 14; TEMP 36.6; O2SAT 100; BMI 19.9
== END ==
PROVIDERS: PCP Family Medicine; Visit Provider Nurse Practitioner Family
DX: M25.461 Effusion, right knee (principal)
CPT/HCPCS: 99214

== ENCOUNTER 2023-08-23 13:02 | Outpatient (REF) | payer BC, SELFPAY ==
--- NOTE | ~2023-08-23 | XR_ITS ---
EXAMINATION: XR KNEE, RIGHT CLINICAL INFORMATION: Twisting injury of right knee, complains of swelling, medial right knee pain COMPARISON: None available. TECHNIQUE: Four views of the right knee. FINDINGS: BONES: Bony structures are intact. There is no focal bone destruction or periosteal reaction seen. JOINTS: Alignment of joints is normal. There is mild decrease in medial compartment right knee joint space. SOFT TISSUE: Right suprapatellar fat pad shows increase in density. No radiopaque foreign body or abnormal air collection is seen. XR/XR knee RT 4V IMPRESSION: 1. 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 2. Right knee effusion is present. 3. No fracture or dislocation or signs of osteomyelitis are found.
== END 2023-08-23 13:03 | disposition home or self-care (01) ==
LOC: HO.XRAY 13:02
PROVIDERS: PCP Family Medicine; Visit Provider Nurse Practitioner Family
DX: M25.461 Effusion, right knee (principal)
CPT/HCPCS: 73564

== ENCOUNTER 2023-09-12 10:48 | Outpatient (AMB) | payer BC, SELFPAY ==
[2023-09-12 10:55] VITALS: BMI 19.9
--- NOTE | 2023-09-12 10:55 | A.OFFVIS_ITS ---
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 The patient states that he 1st injured his right knee while skiing when he was 27 years old. Patient states that he twisted his knee when he collided with the school year in front of him. He then re-injured his right knee several months ago when he twisted his knee in a hole while walking on the grass. Since that time his pain has gotten progressively worse. Most of the pain is along the medial aspect of his knee. He has tried Tylenol and ibuprofen which gave him minimal relief. The patient states that his pain is worsened when he is going down the stairs. Allergies acetaminophen [From Percocet] Allergy (Verified 09/12/23 11:00) Nausea oxycodone [From Percocet] Allergy (Verified 09/12/23 11:00) Nausea percot Allergy (Mild, Uncoded 08/23/23 12:12) Nausea Medication List - Last Reconciled 09/12/23 by Dmitry Butts MD ibuprofen 800 mg PO Q8H PRN 14 days PFSH Medical History GERD (gastroesophageal reflux disease) Surgical History H/O bone graft Hx of colonoscopy Social History (Updated 09/12/23 @ 11:03 by Johnna Hein CMA) Household Members Other:: single no kids Housing: House Alcohol intake: current Alcohol intake frequency: does not drink Patient Tobacco Use Status: Never used Tobacco e-Cigarette/Vaping Use: Never Used Second Hand Smoke Exposure: No service: No Current occupational status: employed Current occupation: [employer], Right hand dominate Current occupational exposures/hazards: No Cognitive needs: No Hearing needs: No Vision needs: No Physical Exam Vital Signs: BMI result Body Mass Index 19.9 Const Other: Well-nourished well-developed very friendly male awake alert and oriented x3 in no acute distress Extrem Other: Bilateral lower extremity examination shows good capillary refill, no skin lesions noted, normal sensation light touch Right knee examination shows a minimal effusion, minimal crepitus with range of motion, tenderness along his medial joint line, positive Imelda's test, no instability Results Reviewed Results Reviewed: Standing full weight-bearing x-rays of the patient's right knee show minimal joint space narrowing, no acute bony abnormalities Assessment & Plan Assessment & Plan (1) Right knee pain: Code(s): M25.561 - Pain in right knee Category: Medical Plan Mr. Jones presents with right knee pain and mechanical symptoms most likely due to a tear of his medial meniscus. Thus, I did recommend that the patient go for an MRI of his right knee for further evaluation. I will see him back once the MRI is completed to discuss the findings and treatment options. He will continue with his activity modifications in the meantime. Feel free to call me at any time should questions regarding his orthopedic management arise. Thank you very much for asking me to see this very friendly gentleman. I spent 22 minutes in reviewing the patient's records and imaging studies, seeing the patient and documenting in the medical record. Coding Level of Care Code New Pt Level 2 (41786) Diagnoses Right knee pain M25.561
== END 2023-09-12 11:31 | disposition home or self-care (01) ==
PROVIDERS: PCP Family Medicine; Visit Provider Orthopaedic Surgery
DX: M25.561 Pain in right knee (principal)
CPT/HCPCS: 99202

== ENCOUNTER → 2023-09-12 10:48 | Outpatient (BNVA) | payer BC, SELFPAY | PROVIDERS: PCP Family Medicine; Visit Provider Orthopaedic Surgery ==

== ENCOUNTER 2023-12-09 08:30 | Outpatient (AMB) | payer BC, SELFPAY ==
--- NOTE | 2023-12-09 09:14 | MHC.OFFWIV ---
Intake Vital Signs 12/09/23 09:16 Height 5 ft 6 in Weight 123 lb 6 oz BMI 19.9 BP 102/62 Blood Pressure Location Lt brachial Position Sitting Respiration 12 Pulse 57 Pulse Source Pulse Oximeter Pulse Oximetry (%) 98 Oxygen Delivery Method Room Air Intake Visit Reasons: est/ something in left eye Intake Note: Something in left eye from grinding on Saturday Patient Tobacco Use Status: Never used Tobacco Allergies acetaminophen [From Percocet] Allergy (Verified 12/09/23 09:15) Nausea oxycodone [From Percocet] Allergy (Verified 12/09/23 09:15) Nausea percot Allergy (Mild, Uncoded 12/09/23 09:15) Nausea Do you need a note to return to daycare/school/sports/work: Yes HPI HPI Comments History of Present Illness Details 58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 He has been rinsing the eye since this time, however it continues to feel like there is something in his eye, he is having light sensitivity, tearing and worsening redness. Plan: call at [address] Gastelum. Spoke to rn document improvement. Scheduled pt appt today at 1:30pm. Pt aware of this appt. Advised to keep eye closed and covered, do not rub or add any more drops. This note is constructed using voice recognition software. While every effort has been made to ensure accuracy in non destructive evaluation specialist, still errors may have been included Sometimes, these errors may affect the content or meaning of the given sentence . Total time spent caring for the patient today was 30 minutes. This includes time spent before the visit reviewing the chart, time spent during the visit, and time spent after the visit on documentation PFSH Medical History GERD (gastroesophageal reflux disease) Surgical History H/O bone graft Hx of colonoscopy Social History (Updated 09/12/23 @ 11:03 by Johnna Hein CMA) Household Members Other:: single no kids Housing: House Alcohol intake: current Alcohol intake frequency: does not drink Patient Tobacco Use Status: Never used Tobacco e-Cigarette/Vaping Use: Never Used Second Hand Smoke Exposure: No service: No Current occupational status: employed Current occupation: [employer], Right hand dominate Current occupational exposures/hazards: No Cognitive needs: No Hearing needs: No Vision needs: No Review of Systems Eyes Reports photophobia Physical Exam Vital Signs: Last Vital Signs Pulse 57 12/09/23 09:16 Resp 12 12/09/23 09:16 BP 102/62 12/09/23 09:16 Pulse Ox 98 12/09/23 09:16 Oxygen Delivery Method Room Air 12/09/23 09:16 BMI result Body Mass Index 19.9 Eyes Periorbital: periorbital findings normal Eyelids: Yes eyelids normal Conjunctivae: conjunctival abnormal left conjunctival injection diffuse Sclerae: scleral abnormal left foreign body Pupils: Equal, round and reactive pupils present EOM: EOMs intact bilaterally Direct Ophthalmoscopy: photophobia Eyes/upper lids images: 1. foreign body Neuro Cranial nerves: Yes Equal, round and reactive pupils present Assessment & Plan Assessment & Plan (1) Foreign body of left eye: Code(s): T15.92XA - Foreign body on external eye, part unspecified, left eye, initial encounter Qualifiers: Encounter type: initial encounter Qualified Code(s): T15.92XA - Foreign body on external eye, part unspecified, left eye, initial encounter Plan: . Patient Instructions: 1:[address] Hugo Coding Level of Care Code Est Pt Level 4 (20910) Diagnoses Foreign body of left eye, initial encounter T15.92XA Encounter type: initial encounter
[2023-12-09 09:16] VITALS: BP 102/62; PULSE 57; RESP 12; O2SAT 98; BMI 19.9
== END 2023-12-09 10:09 | disposition home or self-care (01) ==
PROVIDERS: PCP Family Medicine; Visit Provider Nurse Practitioner Family
DX: T15.92XA Foreign body on external eye, part unspecified, left eye, initial encounter (principal)
CPT/HCPCS: 99214

== ENCOUNTER 2024-02-13 09:12 | Outpatient (REF) | payer BC, SELFPAY ==
[2024-02-13 11:50] LABS: MANUAL DIFF FLAG NO
[2024-02-13 11:56] LABS: Appearance Urine Clear; Color Urine Yellow; Glucose Urine UA Negative (Negative); Leukocyte Esterase Urine Negative (Negative); Nitrite Urine Negative (Negative); Specific Gravity - Urine 1.015 (1.005-1.025); Urine Blood Negative (Negative); Urine Ketones Negative (Negative); Urine Protein Negative (Neg-Trace)
[2024-02-13 12:00] LABS: Basophils Absolute Auto 0.1 X10*3/uL (0.0-0.2); Basophils Percent Auto 1.2 % (0-2); Eosinophils Absolute Auto 0.1 X10*3/uL (0.0-0.4); Eosinophils Percent Auto 2.3 % (0-4); Hematocrit 43.1 % (42.0-52.0); Hemoglobin 14.7 g/dl (14.0-18.0); Imm Gran Abs Auto 0.01 X10*3/uL (0.00-0.03); Imm Gran Pct Auto 0.2 % (0.0-0.4); Lymphocytes Absolute Auto 1.3 X10*3/uL (1.2-4.9); Lymphocytes Percent Auto 25.6 % (20-40); Mean Corpuscular HGB Conc 34.1 g/dl (31.0-36.0); Mean Corpuscular Volume 90.9 fL (80.0-98.0); Mean Platelet Volume 10.7 fL (9.4-12.4); Monocytes Absolute Auto 0.5 X10*3/uL (0.1-1.2); Monocytes Percent Auto 10.5 % (2-11); Neutrophils Absolute Auto 3.1 x10*3/uL (2.0-8.3); Neutrophils Percent Auto 60.2 % (45-73); Platelet Count 206 X10*3/uL (160-400); Red Blood Count 4.74 X10*6/uL (4.60-5.80); Red Cell Distribution Width 12.5 % (11.0-16.0); White Blood Count 5.2 X10*3/uL (4.8-10.8)
[2024-02-13 12:18] LABS: Alanine Aminotransferase 22 U/L (0-40); Albumin Level 4.3 g/dL (3.5-5.0); Alkaline Phosphatase 55 U/L (39-117); Anion Gap 11 (12-20); Aspartate Amino Transferase 25 U/L (5-37); Bilirubin Total 2.3 mg/dL (0.0-1.0); Blood Urea Nitrogen 11 mg/dL (9-16); Calcium 9.4 mg/dL (8.4-10.2); Carbon Dioxide 27 mmol/L (22-29); Chloride 105 mmol/L (96-108); Cholesterol 218 mg/dL (<200); Estimated Glomerular Filt Rate > 60; Glucose Fasting 95 mg/dL (60-99); HDL Cholesterol 64 mg/dL (>40); LDL Cholesterol Calculated 132 mg/dL (<100); Potassium 3.9 mmol/L (3.3-5.1); Sodium 139 mmol/L (135-145); Triglycerides 112 mg/dL (<150)
[2024-02-13 12:35] LABS: Creatinine Urine 70.93 mg/dL; Microalbumin Urine < 5.0 mg/L
[2024-02-13 12:38] LABS: TSH reflex Free T4 2.33 uIU/mL (0.32-4.0)
[2024-02-13 12:40] LABS: Prostate Specific Antigen Scr 0.74 ng/mL (<0.05-4.0)
== END 2024-02-13 09:13 | disposition home or self-care (01) ==
LOC: HO.WFDLDS 09:12
PROVIDERS: Visit Provider Family Medicine
DX: Z00.00 Encounter for general adult medical examination without abnormal findings (principal); I10 Essential (primary) hypertension; Z12.5 Encounter for screening for malignant neoplasm of prostate
CPT/HCPCS: 36415; 80053; 80061; 81003; 82043; 82570; 84153; 84443; 85025

== ENCOUNTER 2024-02-17 08:51 | Outpatient (AMB) | payer BC, SELFPAY ==
--- NOTE | 2024-02-17 09:00 | A.OFFPC_ITS ---
Vital Signs 02/17/24 09:06 Height 5 ft 6 in Weight 124 lb 8 oz BMI 20.1 BP 100/50 L Blood Pressure Location Rt brachial Position Sitting Respiration 10 L Pulse 61 Pulse Source Pulse Oximeter Temp 97.5 F Temp Source Oral Pulse Oximetry (%) 99 Oxygen Delivery Method Room Air Intake Visit Reasons: CPE with f/u labs and health maintenance 30 mins Intake Note: CPE Allergies acetaminophen [From Percocet] Allergy (Verified 02/17/24 09:05) Nausea oxycodone [From Percocet] Allergy (Verified 02/17/24 09:05) Nausea percot Allergy (Mild, Uncoded 12/09/23 09:15) Nausea Medication List - Last Reconciled 02/17/24 by Darrick Hyman MD No Known Home Meds Tobacco use date assessed: 03/04/23 Dental Screening Dental Screen Date: 02/11/23 HPI CPE with f/u labs and health maintenance 30 mins HPI Details 58 y/o male presents for a CPE with f/u labs and health maintenance. Labs drawn 02/13/24. Reviewed labs with pt. Triglycerides 112. TC 218. LDL 132. HDL 64. PSA 0.74. Keeps himself active with an active lifestyle. Ongoing complaints of L wrist pain.He notes wrist occasionally swells. Notes some insect bites. Does have a rash on abdomen. HPI Comments History of Present Illness Details Documentation assistance for Darrick Hyman MD, was provided by Ezio Acharya,? Public Health Assistant on 02/17/2024 at 9:22 AM EST. I, Dr. Hyman, have read, observed, and verified documentation. PFSH Medical History GERD (gastroesophageal reflux disease) Surgical History H/O bone graft Hx of colonoscopy Social History (Updated 02/17/24 @ 09:05 by Tony Del Real MA) Household Members Other:: single no kids Housing: House Alcohol intake: current Alcohol intake frequency: does not drink Patient Tobacco Use Status: Never used Tobacco e-Cigarette/Vaping Use: Never Used Second Hand Smoke Exposure: No service: No Current occupational status: employed Current occupation: [employer], Right hand dominate Current occupational exposures/hazards: No Cognitive needs: No Hearing needs: No Vision needs: No Questionnaire PHQ-9 Over the last 2 weeks, how often have you been bothered by any of the following problems? 1. Little interest or pleasure in doing things: not at all 2. Feeling down, depressed, or hopeless: not at all 3. Trouble falling or staying asleep, or sleeping too much: not at all 4. Feeling tired or having little energy: not at all 5. Poor appetite or overeating: not at all 6. Feeling bad about yourself - or that you are a failure or have let yourself or your family down: not at all 7. Trouble concentrating on things, such as reading the newspaper or watching television: not at all 8. Moving or speaking so slowly that other people could have noticed. Or the opposite - being so fidgety or restless that you have been moving around a lot more than usual: not at all 9. Thoughts that you would be better off or of hurting yourself in some way: not at all Total score: 0 Depression Screening Interpretation: Positive Depression Screening Done: Yes 90099 - PHQ-9 Billing: Yes Source: Developed by Drs. Aldo Kelsey, Gisela Burnham, Jesus Joy and colleagues, with an educational miesha from [employer]. Thrive Questionnaire Date Thrive assessed: 02/17/24 I am a: Patient What is your living situation today?: I have a steady place to live Within the past 12 months, did the food you bought not last and you didn't have the money to get more?: Never true Within the past 12 months, did you worry whether your food would run out before you got money to buy more?: Never true Do you have trouble paying for medicines?: No Do you have trouble getting transportation to medical appointments?: No Do you have trouble paying your heating and electricity bill?: No Do you have trouble taking care of your child, family member or friend?: No Do you have trouble with day-to-day activities such as bathing, preparing meals, shopping, managing finances, etc.?: No Are you currently unemployed and looking for a job?: No Are you interested in more education?: Yes Please select the resources that you would like help with: None Currently or been in a relationship where the following occur: No concerns reported THRIVE Score: 0 AUDIT C Alcohol Use Questionnaire (AUDIT-C) 1. How often do you have a drink containing alcohol?: Never 3. How often do you have six or more drinks on one occasion?: Never Total Score: 0 RON-7 AMB Questionnaire RON-7 Date RON - 7 assessed: 02/17/24 Feeling nervous, anxious, or on edge: 0 = Not at all Not being able to stop or control worryin = Not at all Worrying too much about different things: 0 = Not at all Trouble relaxin = Not at all Being so restless that it is hard to sit still: 0 = Not at all Becoming easily annoyed or irritable: 0 = Not at all Feeling afraid as if something awful might happen: 0 = Not at all Total RON-7 score (0-4 normal; 5-9 mild; 10-14 moderate; 15-21 severe): 0 Source: Developed by Drs. Aldo Kelsey, Gisela Burnham, Jesus Joy and colleagues, with an educational miesha from [employer]. RON-7 Assessment Billing RON-7 Assessment Tool: RON-7 Assessment 06163 Review of Systems Const Denies chills, Denies fatigue, Denies fever(s), Denies headache(s) and Denies weakness Eyes Denies change in vision ENT Denies dizziness, Denies headache(s), Denies hearing loss, Denies nasal congestion, Denies sinus pain, Denies sinus pressure and Denies sore throat Card Denies chest pain, Denies lightheadedness, Denies dyspnea and Denies other (palpitations) Resp Denies cough, Denies dyspnea and Denies wheezing GI Denies abdominal pain, Denies melena, Denies hematochezia, Denies change in bowel habits, Denies dyspepsia and Denies nausea Denies hematuria and Denies dysuria Musc Denies abnormal gait, Denies myalgias, Denies arthralgias, Denies numbness and Denies tingling Skin/Breast Reports rash, Denies unusual bruising and Denies wounds Neuro Denies abnormal gait, Denies dizziness, Denies headache(s), Denies memory loss, Denies numbness, Denies Sensory deficit (Neuro), Denies tingling and Denies weakness Psych Denies anxiety, Denies depression and Denies memory loss Endo Denies cold intolerance, Denies fatigue, Denies heat intolerance, Denies polydipsia and Denies polyuria German/Lymph Denies easy bleeding and Denies easy bruising Aller/Immun Denies wheezing Physical exam (Primary Care) Vital Signs: Last Vital Signs Temp 97.5 F 02/17/24 09:06 Pulse 61 02/17/24 09:06 Resp 10 L 02/17/24 09:06 BP 100/50 L 02/17/24 09:06 Pulse Ox 99 02/17/24 09:06 Oxygen Delivery Method Room Air 02/17/24 09:06 BMI result Body Mass Index 20.1 Tobacco/Smoking Status: Tobacco use Status Tobacco use date assessed 03/04/23 02/17/24 09:01 Patient Tobacco Use Status Never used Tobacco 02/17/24 09:05 e-Cigarette/Vaping Use Never Used 02/17/24 09:05 PHQ-9: PHQ-9 Score PHQ-9: Total score 0 02/17/24 09:17 Depression Screening Interpretation: Positive Thrive Assessment: Date of Thrive Assessment Date Thrive assessed 02/17/24 02/17/24 09:08 Currently or been in a relationship where the following occur: No concerns reported Const General: no acute distress, well developed, alert and awake Nutritional Appearance: well nourished Orientation/consciousness: patient oriented x3 HENMT Head: Yes normocephalic and Yes atraumatic Ears: hearing grossly normal bilaterally and TM's normal bilaterally General nose exam: Normal external nose present and Normal nares present Mouth: Normal oral and palatal mucosa present and moist mucous membranes Teeth and gingiva: dentition normal Throat: Yes posterior oropharynx normal Eyes General: appearance normal, both eyes and all related structures Pupils: Equal, round and reactive pupils present and Pupil accommodation reflex normal EOM: EOMs intact bilaterally Neck Neck: Yes normal visual inspection, Yes no lymphadenopathy and Yes trachea midline Thyroid: Thyroid normal Carotids: no bruits Lymphatic: no lymphadenopathy noted Chest Chest palpation & inspection: normal inspection of the chest Resp Effort & Inspection: normal respiratory effort Auscultation: clear to auscultation bilaterally Cardio Rate: regular rate Rhythm: regular rhythm Heart sounds: S1 normal heart sound present, S2 normal heart sound present, no gallops, no murmurs and no rubs Bruits: no abdominal aortic bruits and no carotid bruits GI Palpation (GI): No Abdominal aortic bruit present, Soft to palpation, nontender, No hepatosplenomegaly present and No Rebound tenderness present Auscultation: normal bowel sounds General: Yes no CVA tenderness Back/Spine/Pelvis Back: no CVA tenderness Cervical Spine: cervical ROM normal and No Cervical spine tenderness Thoracic/Lumbar Spine: thoraco-lumbar ROM normal, No pain with thoraco-lumbar ROM, No thoracic spinal tenderness and No lumbar spinal tenderness Skin Lesions: no lesions Rashes: no rashes Trauma: no lacerations or abrasions Wounds: no wounds Nails: normal Neuro General: patient oriented x3 Cranial nerves: Yes Equal, round and reactive pupils present Cognition (Neuro): normal cognition Gait exam (Neuro): Normal gait present Motor exam (neuro): 5/5 motor strength present throughout Sensory Exam: No Sensory deficit (Neuro) Deep tendon reflexes (DTR's): Right patellar reflex intensity grade: 2+ and Left patellar reflex intensity grade: 2+ Extrem General: Yes normal to inspection and No edema Psych Appearance: grossly normal Affect: normal affect Attitude: cooperative Thought process: Normal thought process present Assessment and Plan Assessment & Plan (1) Adult general medical examination: Code(s): Z00.00 - Encounter for general adult medical examination without abnormal findings Plan: 58-year-old?male?presents?for?complete?physical?exam Encouraged?healthy?diet?with?active?lifestyle?and?plenty?of?exercise (2) GERD (gastroesophageal reflux disease): Code(s): K21.9 - Gastro-esophageal reflux disease without esophagitis Plan: Mild?symptoms He?can?use?OTC?medications?when?he?had?symptoms. Advised?pretreatment?if?he?can?predict/anticipate?symptoms (3) Elevated LDL cholesterol level: Code(s): E78.00 - Pure hypercholesterolemia, unspecified Plan: Encouraged?diet?lower?in?saturated?fats?and?cholesterol Encouraged?exercise Will?recheck?in?a?few?months (4) Wrist pain: Code(s): M25.539 - Pain in unspecified wrist Plan: Right?wrist?pain He?is?using?a?wrist?brace?when?he?does?manually?strenuous?activity Also?use?ice?and?NSAIDs If?worsening?he?will?let?me?know?and?we?can?refer?him?for?consideration?of?injec tion?therapy?or?occupational?therapy (5) Rash: Code(s): R21 - Rash and other nonspecific skin eruption Plan: Recent?insect?sting Start?prednisone Call?or?return?to?office?if?not?improving?or?worsening?or?changing. (6) Right knee pain: Code(s): M25.561 - Pain in right knee Plan: Followed?by??Benjamín?and?has?an?MRI?pending Follow-up?with?ortho?as?recommended (7) Insect sting: Code(s): T63.481A - Toxic effect of venom of other arthropod, accidental (unintentional), initial encounter Plan: Recent?insect?sting?and?patient?describes?this?as?a?small?yellow?jacket?insect Will?give?him?a?short?course?of?prednisone Call?or?return?to?office?if?worsening?or?not?improving (8) Screening for colon cancer: Code(s): Z12.11 - Encounter for screening for malignant neoplasm of colon Plan: Up-to-date.??Patient?says?he?had?a?colonoscopy?about?2?years?ago?and?was?told?to ?follow-up?in?10?years Follow-up?in?about?8?years?now (9) Screening for prostate cancer: Code(s): Z12.5 - Encounter for screening for malignant neoplasm of prostate Plan: PSA?remains?within?normal?range Continue?annual?screening Orders: Orders Lipid Panel Today Z00.00 - Encounter for general adult medical examination without abnormal findings Comprehensive [place]. Panel Fast Today E78.00 - Pure hypercholesterolemia, unspecified, Z00.00 - Encounter for general adult medical examination without abnormal findings Medications: New prednisone 40 mg (2 x 20 mg) PO DAILY 4 days 8 tabs 0RF Coding Level of Care Code Est Pt Level 3 (65968) Est Pt Prev Care 40-64y(98513) Diagnoses Adult general medical examination Z00.00 GERD (gastroesophageal reflux disease) K21.9 Elevated LDL cholesterol level E78.00 Wrist pain M25.539 Rash R21 Right knee pain M25.561 Insect sting T63.481A Screening for colon cancer Z12.11 Screening for prostate cancer Z12.5 Additional Codes RON-7 Assessment Billing - RON-7 Assessment Tool: RON-7 Assessment 70531 ([id number])
[2024-02-17 09:06] VITALS: BP 100/50; PULSE 61; RESP 10; TEMP 36.4; O2SAT 99; BMI 20.1
== END 2024-02-17 09:45 | disposition home or self-care (01) ==
PROVIDERS: PCP Family Medicine; Visit Provider Family Medicine
DX: Z00.00 Encounter for general adult medical examination without abnormal findings (principal); K21.9 Gastro-esophageal reflux disease without esophagitis; E78.00 Pure hypercholesterolemia, unspecified; M25.531 Pain in right wrist; R21 Rash and other nonspecific skin eruption; M25.561 Pain in right knee; T63.481A Toxic effect of venom of other arthropod, accidental (unintentional), initial encounter; Z12.11 Encounter for screening for malignant neoplasm of colon; Z12.5 Encounter for screening for malignant neoplasm of prostate

== ENCOUNTER → 2024-02-17 08:51 | Outpatient (BNVA) | payer BC, SELFPAY | PROVIDERS: PCP Family Medicine; Visit Provider Family Medicine | DX: Z00.01 Encounter for general adult medical examination with abnormal findings (principal); K21.9 Gastro-esophageal reflux disease without esophagitis; E78.00 Pure hypercholesterolemia, unspecified; M25.531 Pain in right wrist; M25.561 Pain in right knee; T63.461A Toxic effect of venom of wasps, accidental (unintentional), initial encounter; L25.8 Unspecified contact dermatitis due to other agents | CPT/HCPCS: 96127 ==

== ENCOUNTER 2024-02-26 09:02 | Outpatient (REF) | payer BC, SELFPAY ==
--- NOTE | ~2024-02-26 | XR_ITS ---
EXAMINATION: XR ORBITS CLINICAL INFORMATION: Pre-MRI COMPARISON: None TECHNIQUE: 2 views of the orbits FINDINGS: No radiopaque foreign body. Osseous structures intact. Nasal septum midline. XR/XR pre mri screening IMPRESSION: Negative exam. No radiopaque foreign body overlying the orbits. Electronically signed by: Jose Eduardo Reddy MD 02/26/2024 09:40 AM EDT RP
--- NOTE | ~2024-02-26 | MR_ITS ---
EXAMINATION: MR KNEE WITHOUT CONTRAST, RIGHT CLINICAL INFORMATION: Right knee pain. COMPARISON: None available. TECHNIQUE: MRI of the knee without contrast was performed using routine sequences on a high-field scanner. FINDINGS: MENISCI: Medial Meniscus: There is a complex horizontal tear of the posterior horn and body with an undersurface flap fragment that is displaced medially at the level of the meniscal body as well as significant undersurface fraying at the posterior horn. Lateral Meniscus: Intact LIGAMENTS: Cruciate: Intact Collateral: Mild thickening of the proximal MCL may be the result of a prior sprain. No tears. LCL complex is intact. EXTENSOR MECHANISM: Enthesopathic spurring at the quadriceps tendon insertion of the patella. Mild quadriceps tendinosis. Patellar tendon is intact. ARTICULAR CARTILAGE/BONE: Patellofemoral Compartment: A 1 cm full-thickness chondral fissure is evident at the medial patellar facet with associated subchondral edema. Patellofemoral compartment articular cartilage is otherwise normal. Medial Compartment: Small marginal osteophytes. Minimal chondral thinning and surface irregularity at the medial femoral condyle weightbearing surface. Lateral Compartment: Normal JOINT FLUID AND BURSAE: Small joint effusion. No Snider's cyst. Mild deep infrapatellar bursitis. MR/MR knee RT wo con IMPRESSION: 1. Complex horizontal tear of the posterior horn and body of the medial meniscus with a displaced undersurface flap fragment at the meniscal body. 2. Minimal medial and patellofemoral compartment osteoarthritis. 3. Small joint effusion. 4. Mild quadriceps tendinosis. Electronically signed by: Julian Calderon MD 03/04/2024 12:44 AM EDT
== END 2024-02-26 09:03 | disposition home or self-care (01) ==
LOC: HO.MRI 09:02
PROVIDERS: PCP Family Medicine; Visit Provider Orthopaedic Surgery
DX: M25.561 Pain in right knee (principal)
CPT/HCPCS: 73721

== ENCOUNTER 2024-03-31 08:33 | Outpatient (AMB) | payer BC, SELFPAY ==
--- NOTE | 2024-03-31 08:35 | A.OFFVIS_ITS ---
Vital Signs 03/31/24 08:36 Height 5 ft 6 in Weight 124 lb BMI 20.0 Intake Visit Reasons: OV- MRI review Right knee Intake Note: Rogers is a 59 year old male who presents today for an MRI review of his Right Knee. Patient 1st injured his right knee while skiing when he was 27 years old. Patient states that he twisted his knee when he collided with the school year in front of him. He then re-injured his right knee several months ago when he twisted his knee in a hole while walking on the grass. He has done physical therapy exercises which aggravated his pain. He has also tried Tylenol and anti-inflammatory medicines which gave him minimal relief. He states that his right knee will give out several times per day. Allergies acetaminophen [From Percocet] Allergy (Verified 03/31/24 08:37) Nausea oxycodone [From Percocet] Allergy (Verified 03/31/24 08:37) Nausea percot Allergy (Mild, Uncoded 03/31/24 08:37) Nausea Medication List - Last Reconciled 04/02/24 by Dmitry Butts MD No Known Home Meds [facility] Medical History GERD (gastroesophageal reflux disease) Surgical History H/O bone graft Hx of colonoscopy Social History Household Members Other:: single no kids Housing: House Alcohol intake: current Alcohol intake frequency: does not drink Patient Tobacco Use Status: Never used Tobacco e-Cigarette/Vaping Use: Never Used Second Hand Smoke Exposure: No service: No Current occupational status: employed Current occupation: [employer], Right hand dominate Current occupational exposures/hazards: No Cognitive needs: No Hearing needs: No Vision needs: No Physical Exam Vital Signs: BMI result Body Mass Index 20.0 Const Other: Well-nourished well-developed very friendly male awake alert and oriented x3 in no acute distress Extrem Other: Bilateral lower extremity examination shows good capillary refill, no skin lesions noted, normal sensation light touch Right knee examination shows a minimal effusion, mild crepitus with range of motion, tenderness along his medial joint line, positive Imelda's test, no instability Results Reviewed Results Reviewed: MRI of the patient's right knee shows mild diffuse degenerative changes as well as a tear of the medial meniscus Assessment & Plan Assessment & Plan (1) Tear of medial meniscus of right knee: Code(s): S83.241A - Other tear of medial meniscus, current injury, right knee, initial encounter Category: Medical Plan Mr. Jones presents with right knee pain and mechanical symptoms due to a medial meniscus tear. I had a lengthy discussion with the patient regarding the treatment options. At this point he appears to be failing continued non operative treatments. The risks and benefits of right knee arthroscopic surgery were discussed at length with the patient. The patient is considering undergoing surgery later this year or early next year. He will contact my office to pick a surgery date if he chooses to do so. Surgery will involve right knee diagnostic arthroscopy with partial medial meniscectomy. The patient will follow-up as instructed. Feel free to call me at any time should questions regarding his orthopedic management arise. I spent 22 minutes in reviewing the patient's records and imaging studies, seeing the patient and documenting in the medical record. Coding Level of Care Code Est Pt Level 3 (44597) Complex EM visit Add On G2211 Diagnoses Tear of medial meniscus of right knee S83.241A
== END 2024-03-31 09:09 | disposition home or self-care (01) ==
PROVIDERS: PCP Family Medicine; Visit Provider Orthopaedic Surgery
DX: S83.241A Other tear of medial meniscus, current injury, right knee, initial encounter (principal)
CPT/HCPCS: 99213

== ENCOUNTER → 2024-03-31 08:33 | Outpatient (BNVA) | payer BC, SELFPAY | PROVIDERS: PCP Family Medicine; Visit Provider Orthopaedic Surgery ==

== ENCOUNTER 2024-05-14 09:57 | Outpatient (REF) | payer BC, SELFPAY ==
[2024-05-14 12:04] LABS: Alanine Aminotransferase 24 U/L (0-40); Albumin Level 4.1 g/dL (3.5-5.0); Anion Gap 10 (12-20); Aspartate Amino Transferase 35 U/L (5-37); Bilirubin Total 2.1 mg/dL (0.0-1.0); Blood Urea Nitrogen 13 mg/dL (9-16); Calcium 9.2 mg/dL (8.4-10.2); Carbon Dioxide 30 mmol/L (22-29); Chloride 104 mmol/L (96-108); Cholesterol 201 mg/dL (<200); Estimated Glomerular Filt Rate > 60; Glucose Fasting 99 mg/dL (60-99); HDL Cholesterol 69 mg/dL (>40); LDL Cholesterol Calculated 117 mg/dL (<100); Potassium 4.9 mmol/L (3.3-5.1); Sodium 139 mmol/L (135-145); Total Protein 6.9 g/dL (6.5-8.0); Triglycerides 79 mg/dL (<150)
[2024-05-14 12:43] LABS: Alkaline Phosphatase 57 U/L (39-117)
== END 2024-05-14 09:58 | disposition home or self-care (01) ==
LOC: HO.WFDLDS 09:57
PROVIDERS: Visit Provider Family Medicine
DX: Z00.00 Encounter for general adult medical examination without abnormal findings (principal); E78.00 Pure hypercholesterolemia, unspecified
CPT/HCPCS: 36415; 80053; 80061

== ENCOUNTER 2024-05-19 10:37 | Outpatient (AMB) | payer BC, SELFPAY ==
--- NOTE | 2024-05-19 10:59 | A.OFFPC_ITS ---
Vital Signs 05/19/24 11:00 Height 5 ft 6 in Weight 123 lb 6 oz BMI 19.9 BP 90/60 Blood Pressure Location Rt brachial Position Sitting Respiration 16 Pulse 72 Pulse Source Pulse Oximeter Pulse Oximetry (%) 98 Oxygen Delivery Method Room Air Intake Visit Reasons: f/u HLD Intake Note: f/u labs Allergies acetaminophen [From Percocet] Allergy (Verified 05/19/24 11:00) Nausea oxycodone [From Percocet] Allergy (Verified 05/19/24 11:00) Nausea percot Allergy (Mild, Uncoded 03/31/24 08:37) Nausea Medication List - Last Reconciled 05/19/24 by Darrick Hyman MD No Known Home Meds Tobacco use date assessed: 03/04/23 Dental Screening Dental Screen Date: 02/11/23 HPI f/u HLD HPI Details 59 y/o male presents to f/u HLD. Labs drawn 05/14/24. Reviewed labs with pt. TC 201. LDL 117. HDL 69. PFSH Medical History GERD (gastroesophageal reflux disease) Surgical History H/O bone graft Hx of colonoscopy Social History Household Members Other:: single no kids Housing: House Alcohol intake: current Alcohol intake frequency: does not drink Patient Tobacco Use Status: Never used Tobacco e-Cigarette/Vaping Use: Never Used Second Hand Smoke Exposure: No service: No Current occupational status: employed Current occupation: [employer], Right hand dominate Current occupational exposures/hazards: No Cognitive needs: No Hearing needs: No Vision needs: No Questionnaire PHQ-9 Over the last 2 weeks, how often have you been bothered by any of the following problems? 1. Little interest or pleasure in doing things: not at all 2. Feeling down, depressed, or hopeless: not at all 3. Trouble falling or staying asleep, or sleeping too much: not at all 4. Feeling tired or having little energy: not at all 5. Poor appetite or overeating: not at all 6. Feeling bad about yourself - or that you are a failure or have let yourself or your family down: not at all 7. Trouble concentrating on things, such as reading the newspaper or watching television: not at all 8. Moving or speaking so slowly that other people could have noticed. Or the opposite - being so fidgety or restless that you have been moving around a lot more than usual: not at all 9. Thoughts that you would be better off or of hurting yourself in some way: not at all Total score: 0 Source: Developed by Drs. Aldo Kelsey, Gisela Burnham, Jesus Joy and colleagues, with an educational miesha from [employer]. Thrive Questionnaire Date Thrive assessed: 05/16/24 I am a: Patient What is your living situation today?: I have a steady place to live Within the past 12 months, did the food you bought not last and you didn't have the money to get more?: Never true Within the past 12 months, did you worry whether your food would run out before you got money to buy more?: Never true Do you have trouble paying for medicines?: No Do you have trouble getting transportation to medical appointments?: No Do you have trouble paying your heating and electricity bill?: No Do you have trouble taking care of your child, family member or friend?: No Do you have trouble with day-to-day activities such as bathing, preparing meals, shopping, managing finances, etc.?: No Are you currently unemployed and looking for a job?: No Are you interested in more education?: Yes Please select the resources that you would like help with: None Currently or been in a relationship where the following occur: No concerns reported THRIVE Score: 0 AUDIT C Alcohol Use Questionnaire (AUDIT-C) 1. How often do you have a drink containing alcohol?: Never Total Score: 0 RON-7 AMB Questionnaire RON-7 Date RON - 7 assessed: 02/17/24 Feeling nervous, anxious, or on edge: 0 = Not at all Not being able to stop or control worryin = Not at all Worrying too much about different things: 0 = Not at all Trouble relaxin = Not at all Being so restless that it is hard to sit still: 0 = Not at all Becoming easily annoyed or irritable: 0 = Not at all Feeling afraid as if something awful might happen: 0 = Not at all Total RON-7 score (0-4 normal; 5-9 mild; 10-14 moderate; 15-21 severe): 0 Source: Developed by Drs. Aldo Kelsey, Gisela Burnham, Jesus Joy and colleagues, with an educational miesha from [employer]. Review of Systems Const Denies chills, Denies fatigue, Denies fever(s), Denies headache(s) and Denies weakness ENT Denies dizziness and Denies headache(s) Card Denies dyspnea Resp Denies cough, Denies dyspnea, Denies wheezing and Denies other (shortness of breath) Musc Denies numbness and Denies tingling Neuro Denies dizziness, Denies headache(s), Denies numbness, Denies tingling and Denies weakness Psych Denies anxiety and Denies depression Endo Denies fatigue Aller/Immun Denies wheezing Physical exam (Primary Care) Vital Signs: Last Vital Signs Pulse 72 05/19/24 11:00 Resp 16 05/19/24 11:00 BP 90/60 05/19/24 11:00 Pulse Ox 98 05/19/24 11:00 Oxygen Delivery Method Room Air 05/19/24 11:00 BMI result Body Mass Index 19.9 Tobacco/Smoking Status: Tobacco use Status Tobacco use date assessed 03/04/23 05/19/24 11:06 Patient Tobacco Use Status Never used Tobacco 05/19/24 11:06 e-Cigarette/Vaping Use Never Used 05/19/24 11:06 PHQ-9: PHQ-9 Score PHQ-9: Total score 0 05/19/24 11:06 Thrive Assessment: Date of Thrive Assessment Date Thrive assessed 05/16/24 05/19/24 11:06 Currently or been in a relationship where the following occur: No concerns reported Const General: well developed; No acute distress Nutritional Appearance: well nourished Orientation/consciousness: patient oriented x3 HENMT Head: Yes normocephalic and Yes atraumatic Eyes General: appearance normal, both eyes and all related structures Pupils: Equal, round and reactive pupils present EOM: EOMs intact bilaterally Resp Effort & Inspection: normal respiratory effort Auscultation: clear to auscultation bilaterally Cardio Rate: regular rate Rhythm: regular rhythm Heart sounds: S1 normal heart sound present, S2 normal heart sound present, no gallops, no murmurs and no rubs Neuro General: patient oriented x3 and gait normal Cranial nerves: Yes Equal, round and reactive pupils present Psych Affect: normal affect Coding Level of Care Code Est Pt Level 3 (85984) Diagnoses Elevated LDL cholesterol level E78.00 Assessment & Plan Assessment & Plan (1) Elevated LDL cholesterol level: Code(s): E78.00 - Pure hypercholesterolemia, unspecified Category: Medical Plan: Patient?made?a?fairly?significant? improvement?in?his?LDL?cholesterol?from?132?down?to?117. He?has?been?working?on?dietary?changes He?has?not?started?an?exercise?regimen?yet He?does?not?need?to?lose?any?weight Encouraged?ongoing?diet?low?in?saturated?fats?and?cholesterol Encouraged?exercise We?discussed?that?he?may?consider?a?supplements?such?as?red?yeast?rice?or?lecith in.??Also?briefly?discussed?non?statin?and?statin?medications. We?can?follow-up?on?this?at?his?next?physical?exam?in?February.??Labs?are?ordered Orders: Orders Lipid Panel Today Z00.00 - Encounter for general adult medical examination without abnormal findings Microalbumin, Random (w Creat) Today I10 - Essential (primary) hypertension Prostate Specific Antigen Scr Today Z12.5 - Encounter for screening for malignant neoplasm of prostate Comprehensive [place]. Panel Fast Today Z00.00 - Encounter for general adult medical examination without abnormal findings UA and rflx microscopic Today Z00.00 - Encounter for general adult medical examination without abnormal findings TSH reflex Free T4 Today Z00.00 - Encounter for general adult medical examination without abnormal findings
[2024-05-19 11:00] VITALS: BP 90/60; PULSE 72; RESP 16; O2SAT 98; BMI 19.9
== END 2024-05-19 13:28 | disposition home or self-care (01) ==
PROVIDERS: PCP Family Medicine; Visit Provider Family Medicine
DX: E78.00 Pure hypercholesterolemia, unspecified (principal)

== ENCOUNTER → 2024-05-19 10:37 | Outpatient (BNVA) | payer BC, SELFPAY | PROVIDERS: PCP Family Medicine; Visit Provider Family Medicine ==

== ENCOUNTER 2024-06-01 11:02 | Outpatient (REF) | payer BC, SELFPAY ==
[2024-06-01 16:16] LABS: Influenza A PCR POSITIVE (Negative); Influenza B PCR NEGATIVE (Negative); Resp Syncy Virus RNA Qual PCR NEGATIVE (Negative); SARS COV2 PCR INHOUSE NEGATIVE (Negative)
== END 2024-06-01 11:03 | disposition home or self-care (01) ==
LOC: HO.LNP 11:02
PROVIDERS: PCP Family Medicine; Visit Provider Nurse Practitioner Family
DX: R68.89 Other general symptoms and signs (principal); R09.89 Other specified symptoms and signs involving the circulatory and respiratory systems; Z23 Encounter for immunization
CPT/HCPCS: 0241U; 90471; 90715

== ENCOUNTER 2024-06-01 11:02 | Outpatient (AMB) | payer BC, SELFPAY ==
--- NOTE | 2024-06-01 11:04 | AM.OFFWIN_ITS ---
Intake Vital Signs 06/01/24 11:08 Height 5 ft 6 in Weight 128 lb 8 oz BMI 20.7 BP 108/66 Blood Pressure Location Rt brachial Position Sitting Respiration 12 Pulse 80 Pulse Source Pulse Oximeter Temp 98.3 F Temp Source Oral Pulse Oximetry (%) 94 Oxygen Delivery Method Room Air Intake Visit Reasons: sinus infection Intake Note: Patient complaining of heaviness in chest, post nasal drip, coughing, fatigue and body aches since Apr on and off but got worse last saturday. Patient Tobacco Use Status: Never used Tobacco Allergies acetaminophen [From Percocet] Allergy (Verified 06/01/24 11:41) Nausea oxycodone [From Percocet] Allergy (Verified 06/01/24 11:41) Nausea percot Allergy (Mild, Uncoded 06/01/24 11:41) Nausea Medication List - Last Reconciled 06/01/24 by BALWINDER Rdz No Known Home Meds Do you need a note to return to daycare/school/sports/work: Yes HPI HPI Comments History of Present Illness Details The patient is a 59-year-old male presenting with Flu like symptoms. He reports the onset of these symptoms began around mid-April, with manifestations appearing intermittently since then, but they have exacerbated since last Saturday. Initially suspecting a sinus infection, he utilized a Medi-Pot which seemed to provide temporary relief. However, symptoms recurred shortly thereafter. The patient describes experiencing postnasal drip, fatigue, body aches, and a sensation of heaviness in the chest, with the most recent episode also including chills isiah to flu symptoms. He notes increased nasal congestion requiring frequent nose-blowing, particularly during this latest episode. Despite these symptoms, he has managed to maintain his daily work activities. The patient denies recent flu or COVID vaccinations, and it was discussed that he requires a Td or Tdap booster, which he consented to receive. He denies taking [id number] cold medications or Tylenol for symptom relief. 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 Exam AWAKE ALERT NAD, MILDLY ILL APPEARING SCLERA CLEAR, CONJUNCTIVA INJECTED BILAT NARES W CLEAR D/C BILAT, TURBINATES PALE AND EDEMATOUS, + FRONTAL AND MAX SINUS TENDERNESS WITH PALPATION BILAT TM INTACT AND CLEAR BILAT MMM, PHARYNX + PND RRR LS CTAB, CRY COUGH NOTED W/O DISTRESS Plan - Conduct a diagnostic swab to test for COVID-19, influenza, and RSV, with results expected by end-of-day or next morning. - If viral etiology flu) is confirmed, c onsider initiating Tamiflu due to its safety profile and effectiveness in symptom management. - Discussed the option of Paxlovid for C OVID, emphasizing its liver metabolism and interaction considerations, though the patient is not on concurrent medications. - If the swab is negative for viral path ogens and sinusitis persists, consider antibiotic therapy. - Administer Tdap vaccination during thi s visit. - Reassure patient will be contacted wit h test results and therapy adjustments if necessary. Patient was informed and verbally consented to the use of an ambient scribe for clinic note documentation during this visit. This note is constructed using voice recognition software. While every effort has been made to ensure accuracy in oil truck driver, still errors may have been included Sometimes, these errors may affect the content or meaning of the given sentence . Total time spent caring for the patient today was 30 minutes. This includes time spent before the visit reviewing the chart, time spent during the visit, and time spent after the visit on documentation PFSH Medical History GERD (gastroesophageal reflux disease) Surgical History H/O bone graft Hx of colonoscopy Social History Household Members Other:: single no kids Housing: House Alcohol intake: current Alcohol intake frequency: does not drink Patient Tobacco Use Status: Never used Tobacco e-Cigarette/Vaping Use: Never Used Second Hand Smoke Exposure: No service: No Current occupational status: employed Current occupation: [employer], Right hand dominate Current occupational exposures/hazards: No Cognitive needs: No Hearing needs: No Vision needs: No Physical Exam Vital Signs: Last Vital Signs Temp 98.3 F 06/01/24 11:08 Pulse 80 06/01/24 11:08 Resp 12 06/01/24 11:08 BP 108/66 06/01/24 11:08 Pulse Ox 94 06/01/24 11:08 Oxygen Delivery Method Room Air 06/01/24 11:08 BMI result Body Mass Index 20.7 Immunizations Boostrix Tdap 2.5 Lf unit-8 mcg-5 Lf/0.5 mL intramuscular syringe Performing Provider: BALWINDER dRz Performing Location: [facility] Administered by: Zoey Downing RN on 06/01/24 11:59 Dose Route Admin Location Dispensed Lot Number Expiration Date NDC Property Loss Insurance Claim Adjuster 0.5 mL IM Left Deltoid 0.5 mL [id number] 06/10/26 64001-638-35 [employer] VIS Given Date VIS Provided VIS Publication Date 06/01/24 Single Vaccine 20 Eligibility Eligibility Date Funding Source Not [facility] Eligible 06/01/24 Private Assessment & Plan Assessment & Plan (1) Flu-like symptoms: Code(s): R68.89 - Other general symptoms and signs (2) Need for Tdap vaccination: Code(s): Z23 - Encounter for immunization Plan . Orders: Orders TDaP Immunization Today Z23 - Encounter for immunization SARS-CoV2/FLU/RSV Today R09.89 - Other specified symptoms and signs involving the circulatory and respiratory systems Coding Level of Care Code Est Pt Level 4 (06367) Diagnoses Flu-like symptoms R68.89 Need for Tdap vaccination Z23
[2024-06-01 11:08] VITALS: BP 108/66; PULSE 80; RESP 12; TEMP 36.8; O2SAT 94; BMI 20.7
== END 2024-06-01 12:02 | disposition home or self-care (01) ==
LOC: HO.HMCWIW 11:02
PROVIDERS: PCP Family Medicine; Visit Provider Nurse Practitioner Family
DX: R68.89 Other general symptoms and signs (principal); Z23 Encounter for immunization

== ENCOUNTER 2024-12-04 08:59 | Outpatient (AMB) | payer BC, SELFPAY ==
--- NOTE | 2024-12-04 09:37 | MHC.OFFWIV ---
Intake Vital Signs 12/04/24 09:38 Height 5 ft 6 in Weight 126 lb BMI 20.3 BP 100/66 Blood Pressure Location Lt brachial Position Sitting Respiration 16 Pulse 63 Pulse Source Pulse Oximeter Temp 97.9 F Temp Source Oral Pulse Oximetry (%) 98 Oxygen Delivery Method Room Air Intake Visit Reasons: EP insect bite ~ RT arm Intake Note: Pt is here today for a walk in visit. Pt c/o insect bite on Saturday c/o R arm swelling and redness. Patient Tobacco Use Status: Never used Tobacco Allergies acetaminophen (From Percocet) Allergy (Verified 12/04/24 09:41) Nausea oxycodone (From Percocet) Allergy (Verified 12/04/24 09:41) Nausea percot Allergy (Mild, Uncoded 12/04/24 09:41) Nausea Medication List - Last Reconciled 12/04/24 by Annetta Ulloa MD No Known Home Meds Do you need a note to return to daycare/school/sports/work: Yes HPI EP insect bite ~ RT arm HPI Details History - The patient is a 59-year-old male presenting with an allergic reaction due to yellow jacket stings. Right forearm - Patient reported being stung on a Saturday evening at 8:00 PM by multiple yellow jackets and estimates he was stung approximately four times. - Initial onset of symptoms began the next day, with significant swelling and redness at the site of the stings. - Swelling has persisted and remains unchanged since the incident, with no significant improvement. - The patient noted that the swelling makes his joint feel tight and compressed, which impairs movement. - The patient has had previous episodes of being stung - No attempts have been made by the patient to manage the symptoms using medications like Benadryl. Medical History: - Allergy to oxycodone and acetaminophen. Problem List - Allergic reaction to insect venom Patient Instructions - Take Benadryl, 25 mg, three times a day for allergic reactions. - Take the prescribed course of prednisone as instructed. Medrol Dosepak sent - Follow the prescribed course of antibiotics for 5 days. Augmentin b.i.d. - Monitor swelling and redness. If symptoms worsen over the weekend, seek emergency care. - Postpone next scheduled shingles vaccination by at least three weeks due to current treatment with steroids. Review of Systems - General: No fever no chills - Neurological: No headaches no dizziness - Ear nose throat: No sore throat no hearing difficulty no ear pain - Cardiovascular: No syncope, no chest pain, no palpitations - Gastrointestinal: No nausea vomiting or diarrhea Physical Exam General: No acute distress HEENT: Redness observed, likely due to allergic reaction Neck: Supple Respiratory system: Able to talk in full sentences Gastrointestinal: No pain Extremities: Swelling noted right forearm all the way to elbow with warmth and slight erythema medially, able to make a fist and able to bend the elbow without any pain, vascular intact 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 awake oriented x3 sensory intact fingers Skin: Normal turgor, redness observed, possible cellulitis PFSH Medical History GERD (gastroesophageal reflux disease) Surgical History H/O bone graft Hx of colonoscopy Social History Household Members Other:: single no kids Housing: House Alcohol intake: current Alcohol intake frequency: does not drink Patient Tobacco Use Status: Never used Tobacco e-Cigarette/Vaping Use: Never Used Second Hand Smoke Exposure: No service: No Current occupational status: employed Current occupation: [employer], Right hand dominate Current occupational exposures/hazards: No Cognitive needs: No Hearing needs: No Vision needs: No Physical Exam Vital Signs: Last Vital Signs Temp 97.9 F 12/04/24 09:38 Pulse 63 12/04/24 09:38 Resp 16 12/04/24 09:38 BP 100/66 12/04/24 09:38 Pulse Ox 98 12/04/24 09:38 Oxygen Delivery Method Room Air 12/04/24 09:38 BMI result Body Mass Index 20.3 Assessment & Plan Assessment & Plan (1) Allergic reaction to insect bite: Code(s): Z91.038 - Other insect allergy status (2) Swelling of right elbow: Code(s): M25.421 - Effusion, right elbow Plan History - The patient is a 59-year-old male presenting with an allergic reaction due to yellow jacket stings. Right forearm - Patient reported being stung on a Saturday evening at 8:00 PM by multiple yellow jackets and estimates he was stung approximately four times. - Initial onset of symptoms began the next day, with significant swelling and redness at the site of the stings. - Swelling has persisted and remains unchanged since the incident, with no significant improvement. - The patient noted that the swelling makes his joint feel tight and compressed, which impairs movement. - The patient has had previous episodes of being stung - No attempts have been made by the patient to manage the symptoms using medications like Benadryl. Medical History: - Allergy to oxycodone and acetaminophen. Problem List - Allergic reaction to insect venom Patient Instructions - Take Benadryl, 25 mg, three times a day for allergic reactions. - Take the prescribed course of prednisone as instructed. Medrol Dosepak sent - Follow the prescribed course of antibiotics for 5 days. Augmentin b.i.d. - Monitor swelling and redness. If symptoms worsen over the weekend, seek emergency care. - Postpone next scheduled shingles vaccination by at least three weeks due to current treatment with steroids. Medications: New methylprednisolone (Medrol (Jules)) PO PER PKG DIR 21 ea 0RF 6 days diphenhydramine HCl (Allergy (diphenhydramine)) 25 mg PO TID PRN 14 caps 0RF allergy symptoms 5 days amoxicillin-pot clavulanate 500-125 mg (Augmentin) 1 tab PO BID 10 tabs 0RF 5 days Coding Level of Care Code Est Pt Level 3 (46851) Diagnoses Allergic reaction to insect bite Z91.038 Swelling of right elbow M25.421
[2024-12-04 09:38] VITALS: BP 100/66; PULSE 63; RESP 16; TEMP 36.6; O2SAT 98; BMI 20.3
== END 2024-12-04 10:02 | disposition home or self-care (01) ==
PROVIDERS: PCP Family Medicine; Visit Provider Internal Medicine
DX: Z91.038 Other insect allergy status (principal); M25.421 Effusion, right elbow

== ENCOUNTER 2025-02-15 08:26 | Outpatient (REF) | payer BC, SELFPAY ==
[2025-02-15 11:26] LABS: Appearance Urine Clear; Glucose Urine UA Negative (Negative); PH 7.5 (5.0-9.0); Specific Gravity - Urine <= 1.005 (1.005-1.025)
[2025-02-15 11:58] LABS: Alanine Aminotransferase 25 U/L (0-40); Albumin Level 4.5 g/dL (3.5-5.0); Alkaline Phosphatase 60 U/L (39-117); Anion Gap 7 (12-20); Aspartate Amino Transferase 31 U/L (5-37); Blood Urea Nitrogen 12 mg/dL (9-16); Calcium 9.1 mg/dL (8.4-10.2); Carbon Dioxide 30 mmol/L (22-29); Chloride 103 mmol/L (96-108); Cholesterol 204 mg/dL (<200); Estimated Glomerular Filt Rate > 60; HDL Cholesterol 61 mg/dL (>40); Potassium 3.8 mmol/L (3.3-5.1); Sodium 136 mmol/L (135-145); Total Protein 6.8 g/dL (6.5-8.0); Triglycerides 104 mg/dL (<150)
== END 2025-02-15 08:27 | disposition home or self-care (01) ==
LOC: HO.WFDLDS 08:26
PROVIDERS: Visit Provider Family Medicine
DX: Z00.00 Encounter for general adult medical examination without abnormal findings (principal); Z12.5 Encounter for screening for malignant neoplasm of prostate; I10 Essential (primary) hypertension
CPT/HCPCS: 36415; 80053; 80061; 81003; 82043; 82570; 84153; 84443

== ENCOUNTER 2025-02-18 15:35 | Outpatient (AMB) | payer BC, SELFPAY ==
--- NOTE | 2025-02-18 15:40 | MHC.PC.OV ---
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: No Allergies acetaminophen (From Percocet) Allergy (Verified 02/18/25 15:42) Nausea oxycodone (From Percocet) Allergy (Verified 02/18/25 15:42) Nausea percot Allergy (Mild, Uncoded 12/04/24 09:41) Nausea Medication List - Last Reconciled 02/18/25 by Darrick Hyman MD No Known Home Meds Tobacco use date assessed: 02/18/25 Dental Screening Dental Screen Date: 02/18/25 Did you have a dental visit in the last 12 months?: Yes Did you have a dental problem in the last 6 months where you did not have access to dental care?: No Was dental information given to patient?: Patient has dentist HPI cpe HPI Details 60 y/o male presents for a CPE with f/u labs and health maintenance. Labs drawn 02/15/25. Reviewed labs with pt. Triglycerides 104. TC 204. LDL 123. HDL 61. PSA 0.74 ng/mL. TSH 2.78 uIU/mL. HPI Comments History of Present Illness Details Documentation assistance for Darrick Hyman MD, was provided by Ezio Acharya,? [employer] on 02/18/2025 at 3:54 PM EST. I, Dr. Hyman, have read, observed, and verified documentation. PFSH Medical History GERD (gastroesophageal reflux disease) Surgical History H/O bone graft Hx of colonoscopy Social History Household Members Other:: single no kids Housing: House Alcohol intake: current Alcohol intake frequency: does not drink Patient Tobacco Use Status: Never used Tobacco e-Cigarette/Vaping Use: Never Used Second Hand Smoke Exposure: No service: No Current occupational status: employed Current occupation: [employer], Right hand dominate Current occupational exposures/hazards: No Cognitive needs: No Hearing needs: No Vision needs: No Questionnaire PHQ-9 Over the last 2 weeks, how often have you been bothered by any of the following problems? 1. Little interest or pleasure in doing things: not at all 2. Feeling down, depressed, or hopeless: not at all 3. Trouble falling or staying asleep, or sleeping too much: not at all 4. Feeling tired or having little energy: not at all 5. Poor appetite or overeating: not at all 6. Feeling bad about yourself - or that you are a failure or have let yourself or your family down: not at all 7. Trouble concentrating on things, such as reading the newspaper or watching television: not at all 8. Moving or speaking so slowly that other people could have noticed. Or the opposite - being so fidgety or restless that you have been moving around a lot more than usual: not at all 9. Thoughts that you would be better off or of hurting yourself in some way: not at all Total score: 0 Depression Screening Interpretation: Positive Depression Screening Done: Yes 79731 - PHQ-9 Billing: Yes Source: Developed by Drs. Aldo Kelsey, Gisela Burnham, Jesus Joy and colleagues, with an educational miesha from [employer]. Thrive Questionnaire Date Thrive assessed: 02/18/25 I am a: Patient What is your living situation today?: I have a steady place to live Within the past 12 months, did the food you bought not last and you didn't have the money to get more?: I choose not to answer this question Within the past 12 months, did you worry whether your food would run out before you got money to buy more?: I choose not to answer this question Do you have trouble paying for medicines?: I choose not to answer this question Do you have trouble getting transportation to medical appointments?: I choose not to answer this question Do you have trouble paying your heating and electricity bill?: I choose not to answer this question Do you have trouble taking care of your child, family member or friend?: I choose not to answer this question Do you have trouble with day-to-day activities such as bathing, preparing meals, shopping, managing finances, etc.?: I choose not to answer this question Are you currently unemployed and looking for a job?: I choose not to answer this question Are you interested in more education?: I choose not to answer this question Please select the resources that you would like help with: None Currently or been in a relationship where the following occur: No concerns reported THRIVE Score: 0 AUDIT C Alcohol Use Questionnaire (AUDIT-C) 1. How often do you have a drink containing alcohol?: Never 3. How often do you have six or more drinks on one occasion?: Never Total Score: 0 Score Reviewed/Action Taken: Yes RON-7 AMB Questionnaire RON-7 Date RON - 7 assessed: 02/18/25 Feeling nervous, anxious, or on edge: 0 = Not at all Not being able to stop or control worryin = Not at all Worrying too much about different things: 0 = Not at all Trouble relaxin = Not at all Being so restless that it is hard to sit still: 0 = Not at all Becoming easily annoyed or irritable: 0 = Not at all Feeling afraid as if something awful might happen: 0 = Not at all Total RON-7 score (0-4 normal; 5-9 mild; 10-14 moderate; 15-21 severe): 0 Source: Developed by Drs. Aldo Kelsey, Gisela Burnham, Jesus Joy and colleagues, with an educational miesha from [employer]. RON-7 Assessment Billing RON-7 Assessment Tool: RON-7 Assessment 70089 Review of Systems Const Denies chills, Denies fatigue, Denies fever(s), Denies headache(s) and Denies weakness Eyes Denies change in vision ENT Denies dizziness, Denies headache(s), Denies hearing loss, Denies nasal congestion, Denies sinus pain, Denies sinus pressure and Denies sore throat Card Denies chest pain, Denies lightheadedness, Denies dyspnea and Denies other (palpitations) Resp Denies cough, Denies dyspnea and Denies wheezing GI Denies abdominal pain, Denies melena, Denies hematochezia, Denies change in bowel habits, Denies dyspepsia and Denies nausea Denies hematuria and Denies dysuria Musc Denies abnormal gait, Denies myalgias, Denies arthralgias, Denies numbness and Denies tingling Skin/Breast Denies rash, Denies unusual bruising and Denies wounds Neuro Denies abnormal gait, Denies dizziness, Denies headache(s), Denies memory loss, Denies numbness, Denies Sensory deficit (Neuro), Denies tingling and Denies weakness Psych Denies anxiety, Denies depression and Denies memory loss Endo Denies cold intolerance, Denies fatigue, Denies heat intolerance, Denies polydipsia and Denies polyuria German/Lymph Denies easy bleeding and Denies easy bruising Aller/Immun Denies wheezing Physical exam (Primary Care) Vital Signs: Last Vital Signs Temp 97.5 F 02/18/25 15:44 Pulse 63 02/18/25 15:44 Resp 16 02/18/25 15:44 BP 102/66 02/18/25 15:44 Pulse Ox 97 02/18/25 15:44 Oxygen Delivery Method Room Air 02/18/25 15:44 BMI result Body Mass Index 20.0 Tobacco/Smoking Status: Tobacco use Status Tobacco use date assessed 02/18/25 02/18/25 15:46 Patient Tobacco Use Status Never used Tobacco 02/18/25 15:46 e-Cigarette/Vaping Use Never Used 02/18/25 15:46 PHQ-9: PHQ-9 Score PHQ-9: Total score 0 02/18/25 15:49 Depression Screening Interpretation: Positive Thrive Assessment: Date of Thrive Assessment Date Thrive assessed 02/18/25 02/18/25 15:46 Currently or been in a relationship where the following occur: No concerns reported Const General: no acute distress, well developed, alert and awake Nutritional Appearance: well nourished Orientation/consciousness: patient oriented x3 HENMT Head: Yes normocephalic and Yes atraumatic Ears: hearing grossly normal bilaterally and TM's normal bilaterally General nose exam: Normal external nose present and Normal nares present Mouth: Normal oral and palatal mucosa present and moist mucous membranes Teeth and gingiva: dentition normal Throat: Yes posterior oropharynx normal Eyes General: appearance normal, both eyes and all related structures Pupils: Equal, round and reactive pupils present and Pupil accommodation reflex normal EOM: EOMs intact bilaterally Neck Neck: Yes normal visual inspection, Yes no lymphadenopathy and Yes trachea midline Thyroid: Thyroid normal Carotids: no bruits Lymphatic: no lymphadenopathy noted Chest Chest palpation & inspection: normal inspection of the chest Resp Effort & Inspection: normal respiratory effort Auscultation: clear to auscultation bilaterally Cardio Rate: regular rate Rhythm: regular rhythm Heart sounds: S1 normal heart sound present, S2 normal heart sound present, no gallops, no murmurs and no rubs Bruits: no abdominal aortic bruits and no carotid bruits GI Palpation (GI): No Abdominal aortic bruit present, Soft to palpation, nontender, No hepatosplenomegaly present and No Rebound tenderness present Auscultation: normal bowel sounds General: Yes no CVA tenderness Back/Spine/Pelvis Back: no CVA tenderness Cervical Spine: cervical ROM normal and No Cervical spine tenderness Thoracic/Lumbar Spine: thoraco-lumbar ROM normal, No pain with thoraco-lumbar ROM, No thoracic spinal tenderness and No lumbar spinal tenderness Skin Lesions: no lesions Rashes: no rashes Trauma: no lacerations or abrasions Wounds: no wounds Nails: normal Neuro General: patient oriented x3 Cranial nerves: Yes Equal, round and reactive pupils present Cognition (Neuro): normal cognition Gait exam (Neuro): Normal gait present Motor exam (neuro): 5/5 motor strength present throughout Sensory Exam: No Sensory deficit (Neuro) Deep tendon reflexes (DTR's): Right patellar reflex intensity grade: 2+ and Left patellar reflex intensity grade: 2+ Extrem General: Yes normal to inspection and No edema Psych Appearance: grossly normal Affect: normal affect Attitude: cooperative Thought process: Normal thought process present Coding Level of Care Code Est Pt Level 3 (93435) Est Pt Prev Care 40-64y(66147) Diagnoses Adult general medical examination Z00.00 Elevated LDL cholesterol level E78.00 Screening for prostate cancer Z12.5 Screening for colon cancer Z12.11 Additional Codes RON-7 Assessment Billing - RON-7 Assessment Tool: RON-7 Assessment 34245 ([id number]) PHQ-9 - 88644 - PHQ-9 Billing: Yes ([id number]) Assessment & Plan Assessment & Plan (1) Adult general medical examination: Code(s): Z00.00 - Encounter for general adult medical examination without abnormal findings Category: Medical Plan: 60-year-old male presents for complete physical exam Encouraged healthy diet with active lifestyle and plenty of exercise (2) Elevated LDL cholesterol level: Code(s): E78.00 - Pure hypercholesterolemia, unspecified Category: Medical Plan: LDL cholesterol is still elevated Continue working at diet low in saturated fats and cholesterol Continue exercise Weight is well controlled He has tried OTC supplements We discussed Zetia. He does not want to use a statin unless absolutely necessary Will follow-up in 3 months (3) Screening for prostate cancer: Code(s): Z12.5 - Encounter for screening for malignant neoplasm of prostate Category: Medical Plan: PSA is within normal range Continue annual screening (4) Screening for colon cancer: Code(s): Z12.11 - Encounter for screening for malignant neoplasm of colon Category: Medical Plan: Colonoscopy in 2021 No colon polyps Follow-up with GI as recommended; likely follow-up 2031 Does get some reflux - avoid triggers and will refer to GI if worsening Orders: Orders Lipid Panel Today E78.00 - Pure hypercholesterolemia, unspecified, Z00.00 - Encounter for general adult medical examination without abnormal findings Comprehensive [place]. Panel Fast Today E78.00 - Pure hypercholesterolemia, unspecified, Z00.00 - Encounter for general adult medical examination without abnormal findings Medications: New epinephrine (EpiPen 2-Jules) 0.3 mg (0.3 mL) IM Q4H PRN 2 ea 2RF anaphylaxis 30 days E78.00 - Pure hypercholesterolemia, unspecified
[2025-02-18 15:44] VITALS: BP 102/66; PULSE 63; RESP 16; TEMP 36.4; O2SAT 97
== END 2025-02-18 16:16 | disposition home or self-care (01) ==
LOC: HO.HMCFM 15:37
PROVIDERS: PCP Family Medicine; Visit Provider Family Medicine
DX: Z00.00 Encounter for general adult medical examination without abnormal findings (principal); E78.00 Pure hypercholesterolemia, unspecified; Z12.5 Encounter for screening for malignant neoplasm of prostate; Z12.11 Encounter for screening for malignant neoplasm of colon

== ENCOUNTER → 2025-02-18 15:35 | Outpatient (BNVA) | payer BC, SELFPAY | PROVIDERS: PCP Family Medicine; Visit Provider Family Medicine | DX: Z00.00 Encounter for general adult medical examination without abnormal findings (principal); E78.00 Pure hypercholesterolemia, unspecified | CPT/HCPCS: 96127 ==

== ENCOUNTER 2025-05-19 09:25 | Outpatient (REF) | payer BC, SELFPAY ==
[2025-05-19 11:57] LABS: Alanine Aminotransferase 31 U/L (0-40); Albumin Level 4.5 g/dL (3.5-5.0); Alkaline Phosphatase 62 U/L (39-117); Anion Gap 10 (12-20); Aspartate Amino Transferase 32 U/L (5-37); Blood Urea Nitrogen 13 mg/dL (9-16); Calcium 9.2 mg/dL (8.4-10.2); Carbon Dioxide 28 mmol/L (22-29); Chloride 103 mmol/L (96-108); Cholesterol 249 mg/dL (<200); Estimated Glomerular Filt Rate > 60; HDL Cholesterol 67 mg/dL (>40); Potassium 4.0 mmol/L (3.3-5.1); Sodium 137 mmol/L (135-145); Total Protein 7.1 g/dL (6.5-8.0); Triglycerides 103 mg/dL (<150)
== END 2025-05-19 09:26 | disposition home or self-care (01) ==
LOC: HO.WFDLDS 09:25
PROVIDERS: Visit Provider Family Medicine
DX: Z00.00 Encounter for general adult medical examination without abnormal findings (principal); E78.00 Pure hypercholesterolemia, unspecified
CPT/HCPCS: 36415; 80053; 80061